=== PATIENT | male | born 1945 | race Two or more races ===

== ENCOUNTER → 2024-09-05 | Outpatient (CLI) | payer MEDICARE, OTHER, SELFPAY ==
[2024-09-05 11:00] LABS: INR 3.2 (0.9-1.3)
[2024-09-05 11:04] LABS: Prothrombin Time 31.8 Seconds (9.0-12.2)
== END | disposition home or self-care (01) ==
LOC: COPL 10:10
PROVIDERS: PCP Family Medicine; Referring Provider Internal Medicine Cardiovascular Disease; Visit Provider Internal Medicine Cardiovascular Disease
DX: I48.21 Permanent atrial fibrillation (principal); Z79.01 Long term (current) use of anticoagulants
CPT/HCPCS: 36415; 85610

== ENCOUNTER → 2024-10-14 | Outpatient (CLI) | payer MEDICARE, OTHER, SELFPAY ==
[2024-10-14 14:46] LABS: Glucose Estimated Average 200 mg/dL (80-131); Hemoglobin A1C 8.6 % Hgb (4.8-6.0)
[2024-10-14 14:58] LABS: Anion Gap 10 (7-16); BUN/Creatinine Ratio 15 Ratio (12-20); Blood Urea Nitrogen 23 mg/dL (9-23); Calcium 9.2 mg/dL (8.3-10.6); Chloride 105 mMol/L (98-107); Creatinine (Component) 1.5 mg/dL (0.6-1.3); Glucose 155 mg/dL (74-106); Osmolality,Calculated 287 (275-295); Sodium 141 mMol/L (136-145); eGFR 48 See Note
== END | disposition home or self-care (01) ==
PROVIDERS: PCP Family Medicine; Referring Provider Family Medicine; Visit Provider Family Medicine
DX: E11.21 Type 2 diabetes mellitus with diabetic nephropathy (principal)
CPT/HCPCS: 36415; 80048; 83036

== ENCOUNTER → 2024-12-29 | Outpatient (CLI) | payer MEDICARE, OTHER, SELFPAY ==
[2024-12-29 14:02] LABS: Glucose Estimated Average 217 mg/dL (80-131); Hemoglobin A1C 9.2 % Hgb (4.8-6.0)
== END | disposition home or self-care (01) ==
LOC: COPL 12:04
PROVIDERS: PCP Family Medicine; Referring Provider Family Medicine; Visit Provider Family Medicine
DX: E11.65 Type 2 diabetes mellitus with hyperglycemia (principal)
CPT/HCPCS: 36415; 83036

== ENCOUNTER 2025-02-06 10:08 | Emergency (ER) | payer MEDICARE, OTHER, SELFPAY ==
[2025-02-06 10:10] VITALS: BMI 25.2
--- NOTE | 2025-02-06 10:22 | EKG_ITS ---
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
[2025-02-06 10:28] VITALS: BP 144/90; PULSE 65; RESP 18; TEMP 36.7; O2SAT 98
--- NOTE | 2025-02-06 10:36 | PD.EDRME ---
Rapid Medical Screening Exam RME Arrival date/time: 02/06/25 10:08 79-year-old male presents to the emergency department today with daughter who reports patient had near syncopal episode today Chief Complaint: Weakness Vital signs: Vital Signs Temperature 98.0 F 02/06/25 10:28 Pulse Rate 65 02/06/25 10:28 Respiratory Rate 18 02/06/25 10:28 Blood Pressure 144/90 H 02/06/25 10:28 Pulse Oximetry (%) 98 02/06/25 10:28 Oxygen Delivery Method Room Air 02/06/25 10:28
[2025-02-06 10:59] LABS: INR 2.8 (0.9-1.3); Prothrombin Time 28.2 Seconds (9.0-12.2)
[2025-02-06 11:06] LABS: B-Type Natriuretic Peptide 222 pg/mL (0-100)
[2025-02-06 11:07] LABS: Alanine Aminotransferase 11 U/L (10-49); Albumin/Globulin Ratio 1.1 (1.2-2.2); Alkaline Phosphatase 120 U/L (46-116); Anion Gap 8 (7-16); Aspartate Amino Transferase 13 U/L (0-34); BUN/Creatinine Ratio 12 Ratio (12-20); Bilirubin,Total 0.8 mg/dL (0.3-1.2); Blood Urea Nitrogen 23 mg/dL (9-23); Calcium 8.7 mg/dL (8.3-10.6); Calcium (Corrected) 8.7 mg/dL (8.5-10.1); Carbon Dioxide 26.3 mMol/L (20.0-31.0); Chloride 107 mMol/L (98-107); Creatinine (Component) 1.9 mg/dL (0.6-1.3); Estimated Creatinine Clearance 35.2 mL/min (>60); Globulin 3.6 gm/dL (2.3-3.5); Glucose 201 mg/dL (74-106); LDH (Lactate Dehydrogenase) 178 U/L (120-246); Magnesium 1.8 mg/dL (1.6-2.6); Osmolality,Calculated 290 (275-295); Sodium 141 mMol/L (136-145); Total Protein 7.6 gm/dL (5.7-8.2); Troponin I < 0.020 ng/mL (0.0-0.045); eGFR 36 See Note
--- NOTE | 2025-02-06 11:10 | PD.EDWEAK ---
ED Weakness RME/HPI General Chief complaint: Weakness Stated complaint: WEAKNESS AND S/P FALL IN AM Time Seen by Provider: 02/06/25 10:42 Arrival date/time: 02/06/25 10:08 RME / HPI RME / HPI Narrative: 02/06/25 10:08 79-year-old male presents to the emergency department today with daughter who reports patient had near syncopal episode today DR. TREVINO MAIN ED EVALUATION: 79 year old male presents to the Emergency Department accompanied by his daughter with complains of generalized weakness and syncopal episode. Patient had just showered and was walking back to his room when he started feeling weak so he went to lay down on his bed and that is when his body gave out. No fall or injury, patient already in bed. Per daughter, patient passed out for couple seconds . Blood glucose was 206. No nausea or vomiting. No chest pain. No other symptoms reported. PMHx: Diabetes, CVA with left arm deficits, and memory problems occasionally. Social Hx: No tobacco, alcohol, or substance use. Related Data Home Medications ?Medication ?Instructions ?Recorded ?Confirmed amlodipine 10 mg tablet (Norvasc) 10 mg PO QDAY 10/14/20 02/06/25 lisinopril 20 mg tablet (Zestril) 20 mg PO QDAY 10/14/20 02/06/25 glyburide 5 mg tablet 5 mg PO BID 10/14/21 02/06/25 metformin 500 mg tablet 500 mg PO BID 10/14/21 02/06/25 oxybutynin chloride 5 mg tablet 5 mg PO QDAY 10/14/21 02/06/25 rivaroxaban 2.5 mg tablet 15 mg PO QDAY 10/14/21 12/02/22 empagliflozin 25 mg tablet 10 mg PO QDAY 10/29/22 02/06/25 (Jardiance) glimepiride 2 mg tablet 2 mg PO QAM 11/07/22 02/06/25 Previous Rx's ?Medication ?Instructions ?Recorded atorvastatin 80 mg tablet (Lipitor) 80 mg PO QPM #60 tabs 10/16/20 Allergies Allergy/AdvReac Type Severity Reaction Status Date / Time tuna oil Allergy Severe Hives Verified 02/06/25 10:10 Review of Systems Review of Systems Systems Reviewed: All systems reviewed, normal except as documented Past Medical History Past Medical History NEUROLOGIC: Positive Neurological Disorders and Cerebrovascular Accident CARDIAC: Positive Cardiac Disorders, Atrial Fibrillation, Hypercholesterolemia and Hypertension; Negative Congestive Heart Failure GENITOURINARY: Positive Genitourinary Disorders and Kidney Stones ENDOCRINE: Positive Endocrine Disorders and Diabetes Mellitus Type 2 PSYCHO/SOCIAL: Positive Depression OTHER HISTORY: Positive Hospitalization (2021-[facility]) Family History FAMILY HISTORY: Positive Family Cardiac Disorders Social History SMOKING STATUS: Never smoker SUBSTANCE USE: does not use ALCOHOL: Never ED Exam Narrative Physical exam: GENERAL APPEARANCE: alert and oriented x 4, well-developed, well-nourished, no acute distress VITALS: All vitals were reviewed and the pulse ox is 98% on room air, which is normal according to my interpretation. HEENT: Normocephalic, atraumatic; pupils equal, round, reactive to light; EOMI; mucous membranes pink, moist; oropharynx clear NECK: Supple. Small mass in the left posterior neck area. LUNGS: CTABL; no wheezes, no rales, no rhonchi HEART: Regular rate, regular rhythm; normal S1, S2; no murmurs ABDOMEN: non distended; normal BS; soft, no tenderness, no guarding, no rebound; no masses, no organomegaly, no hernia BACK: no CVA tenderness EXTREMITIES: atraumatic; no edema NEUROLOGIC: awake; alert and oriented x4; cranial nerves II-XII grossly intact; no focal sensory or motor deficits PSYCHIATRIC: appropriate mood and affect SKIN: warm, dry, normal color; no rashes Course Quality Measures none Orders Category Date Time Status EKG (ED ONLY) *Do not use* NOW Care 02/06/25 10:22 Completed EKG (ED Only) Stat Exams 02/06/25 10:22 Draft B-Type Natriuretic Peptide Stat Lab 02/06/25 10:38 Completed CBC Stat Lab 02/06/25 10:38 Completed Comprehensive Metabolic Panel Stat Lab 02/06/25 10:38 Completed LDH (Lactate Dehydrogenase) Stat Lab 02/06/25 10:38 Completed Magnesium Stat Lab 02/06/25 10:38 Completed Partial Thromboplastin Time Stat Lab 02/06/25 10:38 Completed Prothrombin Time with INR Stat Lab 02/06/25 10:38 Completed Troponin I Stat Lab 02/06/25 10:38 Completed Urinalysis Stat Lab 02/06/25 11:14 Completed Vital Signs Vital signs: Vital Signs Temperature 98.0 F 02/06/25 10:28 Pulse Rate 65 02/06/25 10:28 Respiratory Rate 18 02/06/25 10:28 Blood Pressure 144/90 H 02/06/25 10:28 Pulse Oximetry (%) 98 02/06/25 10:28 Oxygen Delivery Method Room Air 02/06/25 10:28 Weakness MDM Narrative MDM Narrative:: I, Natalia Germain am scribing for and in the presence of Dr. Trevino. Patient data External records reviewed:: [facility] previous records (Reviewed last admission discharge dated 10/16/21, patient admitted for the following: Acute UTI) Clinical information provided by:: patient and family (daughter) Social determinants that could affect healthcare access:: none Patient has the following chronic illnesses:: Diabetes, CVA with left arm deficits, and memory problems occasionally. How is presenting disease/condition affected by chronic disease/condition?: exacerbated by Evaluation data The following diagnostics were reviewed and interpreted by me:: lab results and EKG tracing(s) Lab and/or radiology exams considered but not ordered:: none Interpretation Summary: EKG#1: EKG at 1033 hours. Interpreted by me: atrial fibrillation, rate 59, no acute ischemic changes Medications / Prescriptions Medications or Prescriptions considered but not ordered:: none Medication administrations:: none Consultations Consultation(s) initiated? (list below): No Diagnosis Weakness Differential Diagnosis: hypoglycemia, sepsis, dehydration and other (Near syncope) Most likely diagnosis given after review of the tests above:: Near syncope Admission Indicated Admission indicated?: not indicated Admission Request Was there a request for admission?: No Disposition Plan Disposition Plan: Discharge Discharge Attestation Discharge Attestation: The patient and all family members were given an opportunity to ask questions and understood the discharge instructions. Discharge instructions specifically effects, indications for sooner follow up or return to the emergency department, and the expected course of current diagnosis. Patient condition: Stable Discharge Plan Plan Patient Disposition: HOME (Self Care) Prescriptions/Referrals Prescriptions/Med Rec: No Action Jardiance 25 mg tablet 10 mg PO QDAY lisinopril [Zestril] 20 mg tablet 20 mg PO QDAY Patient Comments: TAKE 1 TABLET BY MOUTH ONCE DAILY amlodipine [Norvasc] 10 mg tablet 10 mg PO QDAY Patient Comments: TAKE 1 TABLET BY MOUTH ONCE DAILY atorvastatin [Lipitor] 80 mg Tablet 80 mg PO QPM Qty: 60 0RF metformin 500 mg Tablet 500 mg PO BID glyburide 5 mg Tablet 5 mg PO BID oxybutynin chloride 5 mg Tablet 5 mg PO QDAY rivaroxaban 2.5 mg Tablet 15 mg PO QDAY glimepiride 2 mg Tablet 2 mg PO QAM Rx Instructions: administer with breakfast Referrals: Soraida Hassan MD [Primary Care Provider] - In 1 week Problem List Clinical Impression: Near syncope Patient/Caregiver Discharge Instructions Education Materials: ED Near-Fainting, Uncertain Cause Print Language: Eritrean Stand Alone Forms: Eileen Award Info., Patient Portal Info Letter
[2025-02-06 11:18] LABS: Collection Type, Urine Clean Catch
[2025-02-06 11:35] LABS: Basophils # (Auto) 0.1 Thou/mm3 (0.0-0.2); Basophils % (Auto) 1 % (0-2.5); Eosinophils # (Auto) 0.3 Thou/mm3 (0.0-0.5); Eosinophils % (Auto) 4 % (0-10); Hematocrit 44.9 % (41.0-53.0); Immature Granulocytes % (Auto) 0 % (0-0); Immature Granulocytes Auto 0.02 Thou/mm3 (0.00-0.00); Lymphocytes % (Auto) 14 % (10-50); Mean Corpuscular HGB Conc 33.4 g/dl (31.0-37.0); Mean Corpuscular Hemoglobin 28.1 pg (25.0-35.0); Mean Corpuscular Volume 84 fL (80-100); Monocytes # (Auto) 0.5 Thou/mm3 (0.0-0.8); Monocytes % (Auto) 6 % (0-12); Neutrophils # (Auto) 5.8 Thou/mm3 (1.8-7.7); Neutrophils % (Auto) 76 % (37-80); Nucleated Red Blood Cell % 0 /100 WBC (0); Platelet Count 247 Thou/mm3 (140-440); RDW Standard Deviation 39.3 fL (35.1-43.9); Red Blood Count 5.34 Miln/mm3 (4.50-5.90); White Blood Count 7.6 Thou/mm3 (3.8-10.6)
[2025-02-06 11:57] LABS: Bacteria,Urine Rare; Bilirubin,Urine Negative (Negative); Blood,Urine 1+ (Negative); Clarity,Urine Clear (Clear/Hazy); Color,Urine Lt-Yellow (Lt Yel-Yel); Glucose, Urine 4+ (Negative); Ketones,Urine Negative (Negative); Leukocyte Esterase,Urine Negative (Negative); Nitrite,Urine Negative (Negative); PH,Urine 6.5 (5.0-7.0); Protein,Urine 1+ (Neg - Trace); RBC,Urine 4 /hpf (0-3); Specific Gravity,Urine 1.015 (1.001-1.035); Squamous Epithelial Cell,Urine 2 /hpf (0-5); Urobilinogen,Urine Negative mg/dL (0.0-1.0); WBC,Urine 6 /hpf (0-5)
[2025-02-06 12:07] VITALS: BP 165/106; PULSE 62; RESP 19; TEMP 36.4; O2SAT 98
== END 2025-02-06 13:12 | disposition home or self-care (01) ==
PROVIDERS: Nurse Practitioner Primary Care; Emergency Provider Emergency Medicine; PCP Family Medicine
DX: R55 Syncope and collapse (principal); R53.1 Weakness; I48.91 Unspecified atrial fibrillation; Z86.73 Personal history of transient ischemic attack (TIA), and cerebral infarction without residual deficits
CPT/HCPCS: 36415; 80053; 81001; 83615; 83735; 83880; 84484; 85025; 85610; 85730; 93005; 99283

== ENCOUNTER 2025-08-18 19:37 | Inpatient (IN) | payer MEDICARE, OTHER, SELFPAY ==
[2025-08-18 19:40] VITALS: BMI 27.0
[2025-08-18 19:58] VITALS: BP 119/84; PULSE 81; RESP 18; TEMP 36.6; O2SAT 99
--- NOTE | 2025-08-18 20:25 | EKG_ITS ---
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
--- NOTE | 2025-08-18 20:29 | XR_ITS ---
Examination: CT brain head without contrast. 2-D sagittal coronal reconstructions Date and time of exam: August 18, 2025, 20.44 hours INDICATION: Altered mental status today CTDI: vol (mGy): 51.8 DLP: (mGycm): 1096 Technique: Multiple CT axial sections of the brain have been obtained, 5 mm slice thickness. Contrast has not been administered. 2-D sagittal, coronal reconstructions have been obtained Low dose protocols were performed. One or more of the following dose reduction techniques were used; automated exposure control, adjustment of the mA and/or KV according to patient size, use of iterative reconstruction technique. Findings: No significant ventricular enlargement. Intra-axial or extra-axial hemorrhage density is not seen. No mass effect or midline shift Basal cisterns are not remarkable. Fourth ventricle is midline. Cranial vault intact. Impression: Negative for acute hemorrhage, mass effect or midline shift Advise clinical correlation and follow-up accordingly
[2025-08-18 20:55] LABS: Basophils # (Auto) 0.1 Thou/mm3 (0.0-0.2); Basophils % (Auto) 1 % (0-2.5); Eosinophils # (Auto) 0.3 Thou/mm3 (0.0-0.5); Eosinophils % (Auto) 4 % (0-10); Hematocrit 40.0 % (41.0-53.0); Hemoglobin 13.8 g/dL (13.5-16.0); Immature Granulocytes Auto 0.02 Thou/mm3 (0.00-0.00); Lymphocytes # (Auto) 1.4 Thou/mm3 (1.0-4.8); Lymphocytes % (Auto) 17 % (10-50); Mean Corpuscular HGB Conc 34.5 g/dl (31.0-37.0); Mean Corpuscular Hemoglobin 30.1 pg (25.0-35.0); Mean Corpuscular Volume 87 fL (80-100); Monocytes # (Auto) 0.8 Thou/mm3 (0.0-0.8); Monocytes % (Auto) 9 % (0-12); Neutrophils # (Auto) 5.6 Thou/mm3 (1.8-7.7); Neutrophils % (Auto) 69 % (37-80); Nucleated Red Blood Cell # 0.00 Thou/mm3 (0.00-0.00); Nucleated Red Blood Cell % 0 /100 WBC (0); Platelet Count 244 Thou/mm3 (140-440); RDW Standard Deviation 40.6 fL (35.1-43.9); Red Blood Count 4.58 Miln/mm3 (4.50-5.90); White Blood Count 8.1 Thou/mm3 (3.8-10.6)
[2025-08-18 21:08] LABS: INR 1.5 (0.9-1.3); Partial Thromboplastin Time 35.0 Seconds (22.0-36.0); Prothrombin Time 15.8 Seconds (9.0-12.2)
[2025-08-18 21:40] LABS: Ammonia < 10 uMol/L (11-32); Anion Gap 9 (7-16); Blood Urea Nitrogen 16 mg/dL (9-23); Carbon Dioxide 23.9 mMol/L (20.0-31.0); Chloride 105 mMol/L (98-107); Potassium 4.3 mMol/L (3.4-5.1); Sodium 138 mMol/L (136-145)
[2025-08-18 21:41] LABS: Acetaminophen < 2.0 mcg/mL (10.0-20.0); Alanine Aminotransferase 17 U/L (10-49); Albumin, Serum 4.3 gm/dL (3.4-4.8); Albumin/Globulin Ratio 1.3 (1.2-2.2); Alcohol, Blood Medical < 3.0 mg/dL (0-10.0); Alkaline Phosphatase 117 U/L (46-116); Aspartate Amino Transferase 19 U/L (0-34); BUN/Creatinine Ratio 9 Ratio (12-20); Bilirubin,Total 0.8 mg/dL (0.3-1.2); Calcium 9.0 mg/dL (8.3-10.6); Calcium (Corrected) 9.0 mg/dL (8.5-10.1); Creatinine (Component) 1.7 mg/dL (0.6-1.3); Estimated Creatinine Clearance 40.5 mL/min (>60); Globulin 3.3 gm/dL (2.3-3.5); Glucose 329 mg/dL (74-106); Magnesium 1.9 mg/dL (1.6-2.6); Osmolality,Calculated 289 (275-295); Salicylate < 3.0 mg/dL; Thyroid Stimulating Hormone 2.52 uIU/mL (0.55-4.78); Total Protein 7.6 gm/dL (5.7-8.2); Troponin I < 0.020 ng/mL (0.0-0.045); eGFR 41 See Note
[2025-08-18 22:53] VITALS: BP 154/93; PULSE 71; RESP 18; TEMP 36.9; O2SAT 99
--- NOTE | 2025-08-18 23:26 | PD.EDAMS ---
Altered Mental Status RME/HPI General Chief Complaint: Altered Mental Status Stated Complaint: ALTERED MENTAL STATUS Time Seen by Provider: 08/18/25 19:44 Arrival date/time: 08/18/25 19:37 RME / HPI RME / HPI narrative: DR. CONTRERAS MAIN ED EVALUATION: Patient presenting with intermittent confusion and tendency to wander having been in 2 separate locations within the last 48 hours while driving. No antecedent fever, chills, vomiting, or diarrhea. No URI or cough. Baseline incontinence of urine. PMH: Cerebrovascular Accident, Atrial Fibrillation, Hypercholesterolemia, Hypertension, Renal Disease, Kidney Stones, Diabetes Mellitus Type 2, Depression PSH: Allergies: None reported Social: Non-drinker, Non-smoker, Related Data Home Medications ?Medication ?Instructions ?Recorded ?Confirmed amlodipine 10 mg tablet (Norvasc) 10 mg PO QDAY 10/14/20 02/06/25 lisinopril 20 mg tablet (Zestril) 20 mg PO QDAY 10/14/20 02/06/25 glyburide 5 mg tablet 5 mg PO BID 10/14/21 02/06/25 metformin 500 mg tablet 500 mg PO BID 10/14/21 02/06/25 oxybutynin chloride 5 mg tablet 5 mg PO QDAY 10/14/21 02/06/25 rivaroxaban 2.5 mg tablet 15 mg PO QDAY 10/14/21 12/02/22 empagliflozin 25 mg tablet 10 mg PO QDAY 10/29/22 02/06/25 (Jardiance) glimepiride 2 mg tablet 2 mg PO QAM 11/07/22 02/06/25 Previous Rx's ?Medication ?Instructions ?Recorded atorvastatin 80 mg tablet (Lipitor) 80 mg PO QPM #60 tabs 10/16/20 Allergies Allergy/AdvReac Type Severity Reaction Status Date / Time tuna oil Allergy Severe Hives Verified 08/18/25 19:48 Review of Systems Review of Systems Systems Reviewed: All systems reviewed, normal except as documented Past Medical History Past Medical History NEUROLOGIC: Positive Neurological Disorders and Cerebrovascular Accident CARDIAC: Positive Cardiac Disorders, Atrial Fibrillation, Hypercholesterolemia and Hypertension GENITOURINARY: Positive Genitourinary Disorders, Renal Disease and Kidney Stones ENDOCRINE: Positive Endocrine Disorders and Diabetes Mellitus Type 2 PSYCHO/SOCIAL: Positive Depression OTHER HISTORY: Positive Hospitalization Family History FAMILY HISTORY: Positive Family Cardiac Disorders ED Exam Narrative Physical exam: GEN. APPEARANCE: The patient is alert awake oriented x2/3 with assist, appropriately interactive at this time. Under no distress, lying down comfortably, does not look ill/toxic. Patient has good eye contact. Patient is cooperative. VITALS: All vitals were reviewed and the pulse ox is 99%, which is normal according to my interpretation HEENT: Normocephalic, atraumatic and nontender. Pupils are equal and reactive. Oral mucosa is moist. NECK: Supple, nontender, no meningismus, no JVD. There is no thyromegaly and no lymphadenopathy. CHEST: Nontender on palpation no deformity and no crepitus. CARDIOVASCULAR: Heart irregular irregular rate and regular rhythm, no murmur or gallop rub or extra beats. LUNGS: Clear to auscultation bilaterally with symmetrical chest rise. No laboring tachypnea or wheezing. No intercostal subcostal retraction. No rales and no rhonchi. ABDOMEN: Soft, flat, nontender to palpation, no guarding or rebound tenderness. There are no abnormal masses palpated. No pulsatile masses or bruits. Active and normal bowel sounds. EXTREMITIES: Normal inspection and palpation. No edema. No cyanosis. Patient is able to move all 4 extremities well. LE with no edema or calf tenderness. SKIN: Warm and dry, no rashes noted. MUSCULOSKELETAL: No lumbar or midline bony tenderness. There is no CVA tenderness. No paraspinal muscle spasm or tenderness. NEURO: Cranial nerves II through XII grossly intact. There are no focal neurologic deficits noted. Slightly impaired cognition. PSYCHIATRIC: Patient is in normal mood and affect, cooperative. LYMPHATICS: No major lymphadenopathy noted. Course Quality Measures none Orders Category Date Time Status Admit to Inpatient Status Routine Admission 08/19/25 01:06 Active Patient Condition Routine Admission 08/19/25 00:58 Ordered Bedside Blood Glucose AC Care 08/19/25 01:04 Active Bedside Blood Glucose NOW Care 08/18/25 20:25 Active COVID-19 Screening Questionnaire NOW Care 08/19/25 00:23 Active Electrical Technician NOW Care 08/18/25 20:25 Active Continuous Pulse Oximetry NOW Care 08/18/25 20:25 Completed EKG (ED ONLY) *Do not use* NOW Care 08/18/25 20:26 Completed Insert IV NOW Care 08/18/25 20:26 Active Miscellaneous Nursing Order NOW Care 08/19/25 00:58 Active NPO NOW Care 08/18/25 20:26 Active Notify provider NEEDED Care 08/19/25 00:58 Active Nurse Swallow Screen X1 Care 08/19/25 01:04 Active Obtain weight X1 Care 08/19/25 00:58 Active Strict Intake and Output Routine Care 08/19/25 00:58 Ordered Vital Signs, Non-Routine Q4H Care 08/19/25 01:00 Ordered Vital Signs, Non-Routine Q4H Care 08/19/25 05:00 Ordered Consult to Neurology / Tele-Neurology Stat Cons 08/19/25 01:[address] head/brain wo con Stat Exams 08/18/25 20:29 Completed EKG (ED Only) Stat Exams 08/18/25 20:25 Draft Acetaminophen Stat Lab 08/18/25 20:45 Completed Alcohol, Blood Medical Stat Lab 08/18/25 20:45 Completed Ammonia Stat Lab 08/18/25 20:45 Completed CBC AM DRAW Lab 08/19/25 05:00 Ordered CBC AM DRAW Lab 08/20/25 05:00 Ordered CBC AM DRAW Lab 08/21/25 05:00 Ordered CBC Stat Lab 08/18/25 20:45 Completed Comprehensive Metabolic Panel AM DRAW Lab 08/19/25 05:00 Ordered Comprehensive Metabolic Panel AM DRAW Lab 08/20/25 05:00 Ordered Comprehensive Metabolic Panel AM DRAW Lab 08/21/25 05:00 Ordered Comprehensive Metabolic Panel Stat Lab 08/18/25 20:45 Completed Drug Screen,Urine Stat Lab 08/18/25 11:41 Completed Lipid Panel AM DRAW Lab 08/19/25 05:00 Ordered Magnesium AM DRAW Lab 08/19/25 05:00 Ordered Magnesium AM DRAW Lab 08/20/25 05:00 Ordered Magnesium AM DRAW Lab 08/21/25 05:00 Ordered Magnesium Stat Lab 08/18/25 20:45 Completed Partial Thromboplastin Time AM DRAW Lab 08/19/25 05:00 Ordered Partial Thromboplastin Time Stat Lab 08/18/25 20:45 Completed Phosphorous AM DRAW Lab 08/19/25 05:00 Ordered Phosphorous AM DRAW Lab 08/20/25 05:00 Ordered Phosphorous AM DRAW Lab 08/21/25 05:00 Ordered Prothrombin Time with INR AM DRAW Lab 08/19/25 05:00 Ordered Prothrombin Time with INR Stat Lab 08/18/25 20:45 Completed Salicylate Stat Lab 08/18/25 20:45 Completed Thyroid Stimulating Hormone AM DRAW Lab 08/19/25 05:00 Ordered Thyroid Stimulating Hormone Stat Lab 08/18/25 20:45 Completed Troponin I Stat Lab 08/18/25 20:45 Completed Urinalysis, C/S if Indicated Stat Lab 08/18/25 11:41 Completed Vitamin B12 Routine Lab 08/19/25 05:00 Ordered Albuterol/Ipratr Rt Essence [Duoneb Rt Essence] Med 08/19/25 00:58 Active 3 ml INH Q6HRRT PRN Atorvastatin Calcium [Lipitor] Med 08/19/25 01:05 Active 80 mg PO HS Dextrose 50% Syr [D50w Syringe Abboject] Med 08/19/25 01:04 Active 25 ml IV Q15MIN PRN Dextrose 50% Syr [D50w Syringe Abboject] Med 08/19/25 01:04 Active 50 ml IV Q15MIN PRN Docusate Sod [Colace] Med 08/19/25 00:58 Active 100 mg PO QDAY PRN Glucagon Inj Med 08/19/25 01:04 Active 1 mg IM Q15MIN PRN INSULIN LISPRO (AdmeLOG) [HumaLOG] Med 08/19/25 07:30 Active See Protocol SC AC Ondansetron Inj [Zofran Inj] Med 08/19/25 00:58 Active 4 mg IVP Q6H PRN Oxybutynin Chlor [Ditropan] Med 08/19/25 09:00 Active 5 mg PO QDAY Sodium Chloride 0.9% 500 ml [Ns] 500 ml Med 08/18/25 20:25 Discontinued IV 500 mls/hr Code Status Routine Oth 08/19/25 01:05 Ordered Oxygen Delivery NOW RT 08/18/25 20:26 Active Vital Signs Vital signs: Vital Signs Temperature 97.9 F 08/18/25 19:58 Pulse Rate 81 08/18/25 19:58 Respiratory Rate 18 08/18/25 19:58 Blood Pressure 119/84 08/18/25 19:58 Pulse Oximetry (%) 99 08/18/25 19:58 Oxygen Delivery Method Room Air 08/18/25 19:58 Altered Mental Status MDM Narrative MDM Narrative:: Scribe Attestation: I, Estelle Neal, am scribing for and in the presence of Dr. Esparza. Provider Notation: Although this document has been carefully reviewed, there may still be some phonetic and other typographical errors. These errors are purely grammatical due to imperfections in the software program and should not be construed in any way to compromise the substance of the patient's medical care during this visit. Patient presenting with intermittent confusion and tendency to wander having been in 2 separate locations within the last 48 hours while driving. No antecedent fever, chills, vomiting, or diarrhea. Please see PE findings. Laboratory markers, including CBC, are essentially unremarkable. Coag profile demonstrates I&R mildly elevated at 1.5. Serum chemistries demonstrate mildly elevated at baseline. Toxicology screen is negative. Alcohol, ASA, and Tylenol undetected. EKG demonstrates atrial fibrillation with controlled rate of 58 bpm, no acute changes noted. Head CT unremarkable. Patient likely experiencing Dementia and will possibly require placement. Will discuss with family. Hospitalist contacted for consideration for admission for further work-up, and possible placement. Final diagnosis is new onset dementia. Patient data External records reviewed:: [facility] previous records (Reviewed prior ED records from 02/06/25. Patient was seen for Near syncope.) Clinical information provided by:: patient Social determinants that could affect healthcare access:: none Patient has the following chronic illnesses:: Cerebrovascular Accident, Atrial Fibrillation, Hypercholesterolemia, Hypertension, Renal Disease, Kidney Stones, Diabetes Mellitus Type 2, Depression How is presenting disease/condition affected by chronic disease/condition?: exacerbated by Evaluation data The following diagnostics were reviewed and interpreted by me:: lab results, radiology exam(s) and EKG tracing(s) (EKG demonstrates atrial fibrillation with controlled rate of 58 bpm, no acute changes noted, per my interpretation.) Lab and/or radiology exams considered but not ordered:: None Interpretation Summary: RADIOLOGY Head/Brain CT: Findings: No significant ventricular enlargement. Intra-axial or extra-axial hemorrhage density is not seen. No mass effect or midline shift Basal cisterns are not remarkable. Fourth ventricle is midline. Cranial vault intact. Impression: Negative for acute hemorrhage, mass effect or midline shift Advise clinical correlation and follow-up accordingly Medications / Prescriptions Medications or Prescriptions considered but not ordered:: None Medication administrations:: Medication Administration History Albuterol/Ipratropium (Albuterol/Ipratropium (Duoneb) Rt Essence 3 Ml Nebu) 3 ml INH Q6HRRT PRN PRN Reason: SHORTNESS OF BREATH OR WHEEZE Stop: 09/18/25 00:57 Atorvastatin Calcium (Atorvastatin Calcium 10 Mg Tablet) 80 mg PO HS JACKIE Stop: 09/18/25 01:04 Dextrose (Dextrose 50%-Water Inj 50 Ml Syringe) 25 ml IV Q15MIN PRN PRN Reason: BG 50-70 responsive npo pt Stop: 09/18/25 01:03 Dextrose (Dextrose 50%-Water Inj 50 Ml Syringe) 50 ml IV Q15MIN PRN PRN Reason: BG <50 OR BG <70 & pt unresponsive Stop: 09/18/25 01:03 Docusate Sodium (Docusate Sod 100 Mg Capsule) 100 mg PO QDAY PRN; Protocol PRN Reason: CONSTIPATION Stop: 09/18/25 00:57 Glucagon (Glucagon Inj 1 Mg Vial) 1 mg IM Q15MIN PRN PRN Reason: BG <70, and no IV access Insulin Human Lispro (Insulin Lispro (Admelog) 1 Unit/0.01 Ml Unit) 0 unit SC [facility]; Protocol Stop: 09/18/25 07:29 Ondansetron HCl (Ondansetron Inj 2 Mg/Ml Inj 2 Ml) 4 mg IVP Q6H PRN; Protocol PRN Reason: NAUSEA OR VOMITING Stop: 09/18/25 00:57 Oxybutynin Chloride (Oxybutynin Chlor 5 Mg Tablet) 5 mg PO QDAY JACKIE Stop: 09/18/25 08:59 Discontinued Medications Sodium Chloride (Ns) 500 mls @ 500 mls/hr IV .Q1H ONE Stop: 08/18/25 21:24 Last Infusion: 08/19/25 00:32 Dose: Infused Documented By: Admin: 08/18/25 23:32 Dose: 500 mls/hr Documented By: AC See above if any Consultations Consultation(s) initiated? (list below): Yes Consultation #1 (Physician, Specialty, Details): Discussed with Dr. Reis for admission. Reviewed the patient?s HPI, PMHx, lab and/or radiology results. Discussed treatment plan. Will consult an admission to the hospitalist. Time: 00:23 Diagnosis Differential diagnosis altered mental status: alcoholic intoxication, altered mental status, delirium, dementia, hypoglycemia, hyponatremia, subarachnoid hemorrhage and sepsis Most likely diagnosis given after review of the tests above:: New onset dementia Admission Indicated Admission indicated?: indicated Explain why admission is indicated or not indicated:: New onset dementia Admission Request Was there a request for admission?: Yes Admission Attestation Admission request attestation: Discussed case with [] from Hospitalist service regarding admission. Discussed patients ED course, exam findings, labs, and radiology results. The Hospitalist [agrees,declines] to accept the patient for admission. Disposition Plan Disposition Plan: Admit Discharge Plan Plan Patient Disposition: Admit Acute Care w/in Hospital Prescriptions/Referrals Prescriptions/Med Rec: No Action Jardiance 25 mg tablet 10 mg PO QDAY lisinopril [Zestril] 20 mg tablet 20 mg PO QDAY Patient Comments: TAKE 1 TABLET BY MOUTH ONCE DAILY amlodipine [Norvasc] 10 mg tablet 10 mg PO QDAY Patient Comments: TAKE 1 TABLET BY MOUTH ONCE DAILY atorvastatin [Lipitor] 80 mg Tablet 80 mg PO QPM Qty: 60 0RF metformin 500 mg Tablet 500 mg PO BID glyburide 5 mg Tablet 5 mg PO BID oxybutynin chloride 5 mg Tablet 5 mg PO QDAY rivaroxaban 2.5 mg Tablet 15 mg PO QDAY glimepiride 2 mg Tablet 2 mg PO QAM Rx Instructions: administer with breakfast Referrals: Tay Hassan MD [Primary Care Provider, Family Practice] - In 1 week Problem List Clinical Impression: Dementia Patient/Caregiver Discharge Instructions Print Language: Armenian Stand Alone Forms: Eileen Award Info., Patient Portal Info Letter
[2025-08-18] MEDS: SODIUM CHLORIDE 0.9% 500 ML 500 ML IV (23:32)
[2025-08-18 23:47] LABS: Collection Type, Urine Clean Catch
[2025-08-18 23:52] LABS: Amorphous Crystals,Urine Present (Absent); Bacteria,Urine Rare; Bilirubin,Urine Negative (Negative); Blood,Urine 1+ (Negative); Clarity,Urine Clear (Clear/Hazy); Color,Urine Yellow (Lt Yel-Yel); Culture Indicated,Urine Not Indicated; Glucose, Urine 4+ (Negative); Ketones,Urine Negative (Negative); Leukocyte Esterase,Urine Negative (Negative); Nitrite,Urine Negative (Negative); PH,Urine 6.0 (5.0-7.0); Protein,Urine 1+ (Neg - Trace); RBC,Urine 4 /hpf (0-3); Specific Gravity,Urine 1.019 (1.001-1.035); Squamous Epithelial Cell,Urine 2 /hpf (0-5); Urobilinogen,Urine Negative mg/dL (0.0-1.0); WBC,Urine 1 /hpf (0-5)
[2025-08-19] VITALS (14 sets, daily range): BP systolic 137–168; BP diastolic 77–99; PULSE 40–78; RESP 16–100; TEMP 36.2–36.8; O2SAT 97–100; BMI 25.4
[2025-08-19 00:11] LABS: Amphetamine/Methamp Scrn,U Negative (Negative); Barbiturate Screen,Urine Negative (Negative); Benzodiazepines Screen,Urine Negative (Negative); Benzoylecgonine Screen, Ur Negative (Negative); Fentanyl Screen,Urine Negative (Negative); Opiate Screen,Urine Negative (Negative); THC Screen,Urine Negative (Negative)
--- NOTE | 2025-08-19 00:53 | PD.RESHP ---
Documentation for date of: 08/19/25 [facility] History of Present Illness History of present illness: 79 y/o male with PMHx of HTN, Afib (On Warfarin), BPH s/p TURP, overactive bladder, HLD, T2DM, and previous CVA (Basal ganglia) who comes in for evaluation of confusion after wandering and driving for the past 2 days. According to the patient's son, patient currently has a license and is able to drive, however he has been wandering off and driving up to [place] for the past 2 days. Patient's son says that he has no business in [place] and that they had to get law enforcement involved to track his location and to get him back home. Patient's son reports that this has never happened to him before. He does endorse that the patient has a history of a stroke and that he has trouble identifying people at times, however he has never been this confused in the past. He denies any other recent travel or sick contacts. He is unsure if the patient takes aspirin, however he says that he takes a blood thinner at this time. He denies any recent sicknesses. Denies history of thyroid problems. He currently lives with the son. He says his bowel movements are regular and his last 1 was today. He has not been more aggressive than usual. He has seen a neurologist in town previously and was cleared. No other complaints at this time. ED Course: He comes to the ED afebrile, with a temperature of 150/87, heart rate 68, respiratory rate 18, saturating 97% on room air. He was worked up was found to have a white count of 8, hemoglobin 13.8, MCV 87, PT/INR of 15.8/1.5 respectively, sodium 138, chloride 105, potassium 4.3, creatinine 1.7, glucose 329, magnesium 1.9, blood alcohol level within normal limits, AST ALT within normal limits, ammonia within normal limits, troponin negative x 1, urinalysis shows +1 blood, 4 RBCs, however no leukocyte esterase or nitrates, urine toxicology negative. Head CT did not show acute hemorrhage, midline shift or mass effect. EKG showed heart rate of 58 with A-fib. PMHx: As above Surgeries: Unknown at this time Meds: Unsure if takes aspirin, Warafarin , Metformin, Glyburide, Amlodipine, Oxybutynin Allergies: Tuna oil Family Hx: No family history of dementia, stroke, heart disease, however family hx significant for kidney disease (majority of siblings) Social Hx: Lives with his son, no EtOH, oral or IV drugs, no smoking hx at this time. Review of Systems Review of Systems Narrative Review of Systems: 12 point ROS reviewed and is otherwise negative unless stated directly in the HPI Exam Vital Signs Temp Pulse Resp BP Pulse Ox O2 Del Method 98.4 F 71 18 155/90 H 99 Room Air 08/18/25 22:53 08/18/25 22:53 08/18/25 22:53 08/19/25 00:00 08/18/25 22:53 08/18/25 19:58 Narrative Exam General: AAOx2, NAD, pleasant, Faroese speaking male HEENT: Moist mucous membranes, conjunctiva clear, EOMI, PERRLA, Cardiovascular: S1, S2, radial pulses +2 bilat, RRR Pulmonary: CTAB bilat no cough, no wheezing GI: No tenderness to light or deep palpitation, no guarding, rigidity, rebound tenderness or distension Extremities: No presence of trace or pitting edema in lower extremities bilaterally, dorsalis pedis pulses +2 bilaterally Neuro: AAOx2, not alert to time, no focal motor or sensory deficits in the UE or LE bilat Psych: Able to cooperate Results: Labs 08/21/25 04:36 08/21/25 04:36 Labs: Short CBC 08/18/25 Range/Units 20:45 WBC 8.1 (3.8-10.6) Thou/mm3 Hgb 13.8 (13.5-16.0) g/dL Hct 40.0 L (41.0-53.0) % Plt Count 244 (140-440) Thou/mm3 BMP 08/18/25 20:45 Sodium 138 Potassium 4.3 Chloride 105 Carbon Dioxide 23.9 BUN 16 Creatinine 1.7 H Glucose 329 H Calcium 9.0 Cardiac Enzymes 08/18/25 Range/Units 20:45 Troponin I < 0.020 (0.0-0.045) ng/mL Liver Function 08/18/25 Range/Units 20:45 Total Bilirubin 0.8 (0.3-1.2) mg/dL AST 19 (0-34) U/L ALT 17 (10-49) U/L Alkaline Phosphatase 117 H (46-116) U/L Albumin 4.3 (3.4-4.8) gm/dL Urine 08/18/25 Range/Units 11:41 Urine Color Yellow (Lt Yel-Yel) Urine Clarity Clear (Clear/Hazy) Urine pH 6.0 (5.0-7.0) Ur Specific [place] 1.019 (1.001-1.035) Urine Protein 1+ A (Neg - Trace) Urine Glucose (UA) 4+ A (Negative) Quality Measures Quality Measures VTE prophylaxis Advance care planning discussed with:: patient and child Medications Home Medications and Allergies Home Medications ?Medication ?Instructions ?Recorded ?Confirmed ?Type amlodipine 10 mg tablet (Norvasc) 10 mg PO QDAY 10/14/20 08/19/25 History olmesartan 40 mg tablet 40 mg PO .once 08/19/25 08/19/25 History Allergies Allergy/AdvReac Type Severity Reaction Status Date / Time tuna oil Allergy Severe Hives Verified 08/18/25 19:48 Visit Medications Discontinued Medications Sodium Chloride (Ns) 500 mls @ 500 mls/hr IV .Q1H ONE Stop: 08/18/25 21:24 Last Admin: 08/18/25 23:32 Dose: 500 mls/hr Assessment & Plan Plan Assessment: 79 y/o male with PMHx of HTN, Afib (On Warfarin), BPH s/p TURP, overactive bladder, HLD, T2DM, and previous CVA (Basal ganglia) who is currently admitted for acute encephalopathy. #Acute encephalopathy #History of CVA DDx: Infectious, metabolic, dementia Head CT within normal limits Urinalysis unremarkable U tox unremarkable This could be acute on chronic encephalopathy Patient does not have a formal diagnosis of dementia, however some of the patient's symptoms including unable to recognize people has been going on for some time Ammonia within normal limits Low suspicion for stroke at this time considering neurologic exam Low suspicion for frontotemporal dementia as patient is not aggressive at this time nor previously Plan: ? Neuro consulted, appreciate recommendations ? B12 ? TSH ? Syphilis ? Will hold off on MRI at this time #A-fib, rate controlled [id number]: 6 HAS-BLED: 3 Rate: Controlled Rhythm: Irregular AC: Warfarin INR 1.5 -> Subtherapeutic Plan: ? Telemetry ? Keep magnesium and potassium above 2 and 4 respectively ? Pharmacy to dose Warfarin #Hypertension #Hyperlipidemia Chronic Plan: ? Holding blood pressure medicines as blood pressures soft at this point ? Resumed home Lipitor 80 mg at bedtime #CKD, stage IIIa Cr 1.7, baseline seems to be around 1.6 Plan: ? 500 cc bolus ? Avoid nephrotoxic agents ? Renally dose medicines ? Trend CMP #Non-insulin dependent Type II Diabetes mellitus Chronic Plan: ? Sliding scale insulin ? Hypoglycemic protocol in place ? Blood sugar checks with meals #Health Maintenance Disposition: Med-Tele DVT prophylaxis: SCDs GI prophylaxis: Protonix Diet: Carb low CODE STATUS: Full Patient seen and care discussed with my attending physician, Dr. Dorita Hayden, PGY-2 This document was transcribed using voice recognition technology. Minor inaccuracies may be present. Attending Provider Attestation/Addendum After examination of the patient and review of the clinical data I feel that this patient needs admission to the hospital for further treatment/evaluation. Plan of care discussed with patient and is in agreement. I Susi Kevin MD, attest that I was physically present for velez portions of evaluation, and examined patient, labs and imagings and plan of care were discussed with IM residents team, and I agree with the findings and plans documented above.
[2025-08-19] MEDS: ATORVASTATIN CALCIUM 10 MG TABLET 80 MG PO ×2 (01:26→21:16)
[2025-08-19] MEDS: INSULIN HUM REGULAR 1 UNIT/0.01 ML (PER UNIT) 5 UNIT IV (01:51)
--- NOTE | 2025-08-19 03:51 | PC.NURSE ---
attempted to do med rec, pt unable to list medication, son nathaniel states he will bring medication list in the morning when he comes to visit.
[2025-08-19 06:44] LABS: Basophils # (Auto) 0.1 Thou/mm3 (0.0-0.2); Basophils % (Auto) 1 % (0-2.5); Eosinophils # (Auto) 0.5 Thou/mm3 (0.0-0.5); Eosinophils % (Auto) 6 % (0-10); Hematocrit 40.0 % (41.0-53.0); Hemoglobin 13.9 g/dL (13.5-16.0); Immature Granulocytes Auto 0.01 Thou/mm3 (0.00-0.00); Lymphocytes # (Auto) 1.3 Thou/mm3 (1.0-4.8); Lymphocytes % (Auto) 16 % (10-50); Mean Corpuscular HGB Conc 34.8 g/dl (31.0-37.0); Mean Corpuscular Hemoglobin 29.6 pg (25.0-35.0); Mean Corpuscular Volume 85 fL (80-100); Monocytes # (Auto) 0.8 Thou/mm3 (0.0-0.8); Monocytes % (Auto) 10 % (0-12); Neutrophils # (Auto) 5.3 Thou/mm3 (1.8-7.7); Neutrophils % (Auto) 67 % (37-80); Nucleated Red Blood Cell # 0.00 Thou/mm3 (0.00-0.00); Nucleated Red Blood Cell % 0 /100 WBC (0); Platelet Count 244 Thou/mm3 (140-440); RDW Standard Deviation 38.9 fL (35.1-43.9); Red Blood Count 4.69 Miln/mm3 (4.50-5.90); White Blood Count 8.0 Thou/mm3 (3.8-10.6)
[2025-08-19 06:59] LABS: INR 1.5 (0.9-1.3); Partial Thromboplastin Time 34.6 Seconds (22.0-36.0); Prothrombin Time 15.3 Seconds (9.0-12.2)
[2025-08-19 07:18] LABS: Alanine Aminotransferase 15 U/L (10-49); Albumin, Serum 4.0 gm/dL (3.4-4.8); Albumin/Globulin Ratio 1.4 (1.2-2.2); Alkaline Phosphatase 105 U/L (46-116); Anion Gap 9 (7-16); Aspartate Amino Transferase 17 U/L (0-34); BUN/Creatinine Ratio 11 Ratio (12-20); Bilirubin,Total 1.2 mg/dL (0.3-1.2); Blood Urea Nitrogen 17 mg/dL (9-23); Calcium 8.9 mg/dL (8.3-10.6); Calcium (Corrected) 8.9 mg/dL (8.5-10.1); Carbon Dioxide 23.6 mMol/L (20.0-31.0); Cardiac Risk Estimate 4.0 RATIO (4.0-6.7); Chloride 107 mMol/L (98-107); Cholesterol 120 mg/dL (132-200); Creatinine (Component) 1.5 mg/dL (0.6-1.3); Estimated Creatinine Clearance 45.9 mL/min (>60); Globulin 2.8 gm/dL (2.3-3.5); Glucose 180 mg/dL (74-106); HDL Cholesterol 30 mg/dL (40-60); LDL Cholesterol,Calculated 67 mg/dL (0-130); Magnesium 2.1 mg/dL (1.6-2.6); Osmolality,Calculated 285 (275-295); Phosphorous 3.2 mg/dL (2.4-5.1); Potassium 3.6 mMol/L (3.4-5.1); Sodium 140 mMol/L (136-145); Total Protein 6.8 gm/dL (5.7-8.2); Triglycerides 113 mg/dL (30-150); eGFR 47 See Note
[2025-08-19 07:20] LABS: Syphilis Nonreactive (Nonreactive)
[2025-08-19] MEDS: INSULIN LISPRO (AdmeLOG) 1 UNIT/0.01 ML UNIT SC ×3 (07:28→17:09)
--- NOTE | 2025-08-19 08:16 | XR_ITS ---
EXAMINATION: AP chest single view TECHNIQUE: AP portable upright chest single view Date and time: August 19, 2025, 0918 hours, comparison October 13, 2021 INDICATIONS: Coughing congestion today. FINDINGS: Mild enlargement cardiac contour. Mild accentuation basilar bronchovascular markings. No lobar pneumonia or pulmonary edema Prominent osteopenia IMPRESSION: Mild basilar bronchitis pattern
[2025-08-19] MEDS: OXYBUTYNIN CHLOR 5 MG TABLET PO (09:05)
--- NOTE | 2025-08-19 10:21 | ESCONSULT_ITS ---
<Statement entered by Kaykay Wing MD - 08/22/25 17:27> I personally examined evaluated this patient is well-known to me now longstanding history of dementia hypertension atrial fibrillation chronic was on Coumadin not taking the medication noncompliant came with a heart rate fast because not taking medication currently rates controlled well anticoagulated discussed Coumadin appears to be not a good choice now because of dementia and noncompliance recommend the patient to be treated with Eliquis. Evaluate patient with resident physician PGY [address] DR. GRAY agree with the treatment plan recommendation as documented HPI Data of Consult Requesting Physician: Susi Kevin MD Admitting Provider: Susi Kevin MD Attending Provider: Susi Kevin MD Primary Care Provider: Tay Hassan MD Consult Narrative Reason for consult: Atrial fibrillation History of present illness: 79-year-old Sammarinese-speaking male with past medical history of hypertension, insulin-dependent type 2 diabetes, prostate surgery for prostatomegaly, hyperlipidemia, chronic atrial fibrillation on warfarin, CKD stage II, dementia likely vascular presenting to the hospital on 08/18 for confusion and wandering around per patient's family. Patient takes blood thinner and follows up with cardiology; however, INR levels have been consistently erratic secondary to poor compliance with medications. Patient has had noninvasive cardiac assessment in the past with negative nuclear imaging and normal perfusion scans. Patient usually on 4 mg warfarin twice a week and 2 mg rest of the week but currently INR is not in the therapeutic range. Patient noted by hospitalist team for acute encephalopathy likely metabolic versus underlying dementia worsening. Neurology has been consulted for recommendations. Past medical history: As stated above Surgeries: Prostate surgery Allergies: NKDA Medications: Amlodipine, atorvastatin, Lantus 14 units daily, olmesartan, warfarin as above Family history: No significant family history of heart disease Social history: Patient lives with son denies any tobacco, alcohol or illicit drug use ROS: All 12 systems assessed and the patient denies unless otherwise stated in HPI Cardiology consulted for recommendations regarding patient's atrial fibrillation with EKG obtained showing A-fib with SVR and left axis deviation. cc:: cc: Susi Kevin MD Exam Vital Signs Temp Pulse Resp BP Pulse Ox O2 Del Method 97.1 F 65 18 143/99 H 99 Room Air 08/19/25 07:40 08/19/25 07:40 08/19/25 07:40 08/19/25 07:40 08/19/25 07:40 08/19/25 07:40 Narrative Exam General: Awake answering questions appropriately in Sammarinese, appears stated age HEENT: Moist mucous membranes, conjunctiva clear, EOMI, PERRLA, Cardiovascular: S1, S2, radial pulses +2 bilat, irregularly irregular Pulmonary: CTAB bilat no cough, no wheezing GI: No tenderness to light or deep palpitation, no guarding, rigidity, rebound tenderness or distension Extremities: No presence of trace or pitting edema in lower extremities bilaterally, dorsalis pedis pulses +2 bilaterally Neuro: AAOx2, not alert to time, no focal motor or sensory deficits in the UE or LE bilat Results Labs 08/19/25 05:40 08/19/25 05:40 Labs: Short CBC 08/18/25 08/19/25 Range/Units 20:45 05:40 WBC 8.1 8.0 (3.8-10.6) Thou/mm3 Hgb 13.8 13.9 (13.5-16.0) g/dL Hct 40.0 L 40.0 L (41.0-53.0) % Plt Count 244 244 (140-440) Thou/mm3 BMP 08/18/25 08/19/25 20:45 05:40 Sodium 138 140 Potassium 4.3 3.6 D Chloride 105 107 Carbon Dioxide 23.9 23.6 BUN 16 17 Creatinine 1.7 H 1.5 H Glucose 329 H 180 H D Calcium 9.0 8.9 Cardiac Enzymes 08/18/25 Range/Units 20:45 Troponin I < 0.020 (0.0-0.045) ng/mL Liver Function 08/18/25 08/19/25 Range/Units 20:45 05:40 Total Bilirubin 0.8 1.2 (0.3-1.2) mg/dL AST 19 17 (0-34) U/L ALT 17 15 (10-49) U/L Alkaline Phosphatase 117 H 105 (46-116) U/L Albumin 4.3 4.0 (3.4-4.8) gm/dL Urine 08/18/25 Range/Units 11:41 Urine Color Yellow (Lt Yel-Yel) Urine Clarity Clear (Clear/Hazy) Urine pH 6.0 (5.0-7.0) Ur Specific [place] 1.019 (1.001-1.035) Urine Protein 1+ A (Neg - Trace) Urine Glucose (UA) 4+ A (Negative) Quality Measures Quality Measures none Advance care planning discussed with:: patient Medications Home Medications and Allergies Home Medications ?Medication ?Instructions ?Recorded ?Confirmed ?Type amlodipine 10 mg tablet (Norvasc) 10 mg PO QDAY 08/19/25 History insulin glargine 100 unit/mL (3 14 unit subcut QDAY 08/19/25 History mL) subcutaneous pen (Lantus Solostar U-100 Insulin) olmesartan 40 mg tablet 40 mg PO .once 08/19/2506/05 History vit D3-folic acid-vit B2-B6-B12 1 tab PO .once 5 08/19/25 History 2,000 unit-800 mcg-0.32 mg tablet warfarin 1 mg tablet 1 mg PO .once daily 08/19/25 08/19/25 History Allergies Allergy/AdvReac Type Severity Reaction Status Date / Time tuna oil Allergy Severe Hives Verified 08/18/25 19:48 Visit Medications Albuterol/Ipratropium (Albuterol/Ipratropium (Duoneb) Rt Essence 3 Ml Nebu) 3 ml INH Q6HRRT PRN PRN Reason: SHORTNESS OF BREATH OR WHEEZE Stop: 09/18/25 00:57 Atorvastatin Calcium (Atorvastatin Calcium 10 Mg Tablet) 80 mg PO HS JACKIE Stop: 09/18/25 01:04 Last Admin: 08/19/25 01:26 Dose: 80 mg Dextrose (Dextrose 50%-Water Inj 50 Ml Syringe) 25 ml IV Q15MIN PRN PRN Reason: BG 50-70 responsive npo pt Stop: 09/18/25 01:03 Dextrose (Dextrose 50%-Water Inj 50 Ml Syringe) 50 ml IV Q15MIN PRN PRN Reason: BG <50 OR BG <70 & pt unresponsive Stop: 09/18/25 01:03 Docusate Sodium (Docusate Sod 100 Mg Capsule) 100 mg PO QDAY PRN; Protocol PRN Reason: CONSTIPATION Stop: 09/18/25 00:57 Glucagon (Glucagon Inj 1 Mg Vial) 1 mg IM Q15MIN PRN PRN Reason: BG <70, and no IV access Insulin Human Lispro (Insulin Lispro (Admelog) 1 Unit/0.01 Ml Unit) 0 unit SC AC [facility]; Protocol Stop: 09/18/25 07:29 Last Admin: 08/19/25 07:28 Dose: 1 unit Ondansetron HCl (Ondansetron Inj 2 Mg/Ml Inj 2 Ml) 4 mg IVP Q6H PRN; Protocol PRN Reason: NAUSEA OR VOMITING Stop: 09/18/25 00:57 Oxybutynin Chloride (Oxybutynin Chlor 5 Mg Tablet) 5 mg PO QDAY [facility] Stop: 09/18/25 08:59 Last Admin: 08/19/25 09:05 Dose: 5 mg Pantoprazole Sodium (Pantoprazole Inj 40 Mg Vial) 40 mg IVP QDAY [facility] Stop: 09/18/25 08:59 Last Admin: 08/19/25 09:05 Dose: 40 mg Pharmacy Consult (Pharmacy To Dose Warfarin) 1 each PO QDAY PRN PRN Reason: CONSULT Stop: 09/18/25 10:05 Warfarin Sodium (Warfarin 1 Mg Tablet) 2 mg PO 1200 ONE Stop: 08/19/25 12:01 Discontinued Medications Sodium Chloride (Ns) 500 mls @ 500 mls/hr IV .Q1H ONE Stop: 08/18/25 21:24 Last Infusion: 08/19/25 00:32 Dose: Infused Magnesium Sulfate/Dextrose (Magnesium Sulfate Ivpb) 1 gm in 100 mls @ 100 mls/hr IV X1 ONE Stop: 08/19/25 02:35 Last Admin: 08/19/25 02:47 Dose: 100 mls/hr Insulin Human Regular (Insulin Hum Regular 1 Unit/0.01 Ml (Per Unit)) 5 unit IV X1 ONE Stop: 08/19/25 01:22 Last Admin: 08/19/25 01:51 Dose: 5 unit Warfarin Sodium (Warfarin 1 Mg Tablet) 1 mg PO QDAY [facility] Stop: 09/02/25 08:59 Warfarin Sodium (Warfarin 1 Mg Tablet) 1 mg PO QDAY@1200 JACKIE Stop: 09/02/25 11:59 Assessment & Plan Plan 79-year-old Sammarinese-speaking male with past medical history of hypertension, insulin-dependent type 2 diabetes, prostate surgery for prostatomegaly, hyperlipidemia, chronic atrial fibrillation on warfarin, CKD stage II, dementia likely vascular presenting to the hospital for confusion and wandering around per patient's family. Cardiology consulted for recommendations regarding patient's atrial fibrillation with EKG obtained showing A-fib with SVR and left axis deviation. #Chronic A-fib [id number]: 6 HAS-BLED: 3 As noted above, patient has chronic atrial fibrillation which was controlled without any rate/rhythm control medications Patient is on warfarin 4 mg twice a week and 2 mg rest of the week; however, there is some concern for medication noncompliance as patient's INR checked frequently at cardiology varied between therapeutic and subtherapeutic Patient's presenting to the hospital with EKG showing A-fib with SVR and left axis deviation but patient denies having any active chest pain, shortness of breath or other concerning cardiac symptoms Patient's INR subtherapeutic currently with INR 1.5 Plan: Continue monitoring on telemetry Keep magnesium greater than 2 and potassium greater than 4 Discontinue warfarin and start Eliquis 5 mg p.o. twice daily Please follow-up with cardiology once stable to be discharged within 1 week #Acute encephalopathy #History of CVA #Hypertension #Hyperlipidemia #CKD, stage IIIa #Non-insulin dependent Type II Diabetes mellitus Rest of medical problems to be managed by the primary hospitalist team Patient seen and assessed with attending Dr. Wing I have personally seen and examined the patient. I agree with the resident's assessment and plan as documented below. Itz Gray, DO PGY-2 Internal Medicine - [facility]
[2025-08-19] MEDS: WARFARIN 1 MG TABLET 2 MG PO (11:36)
--- NOTE | 2025-08-19 11:50 | ESPR_ITS ---
<Statement entered by Vish Medeiros MD - 08/31/25 07:57> I reviewed above note and agree with findings and plans. I have also personally examined the patient with medicine team and went over assessment and plan with medical team including international account manager and resident physician. Documentation for date of: 08/19/25 Subjective Subjective Interval history: Patient seen and examined this morning with his son at bedside. Son reports no new episodes of confusion, agitation, or wandering since admission. Patient remains calm and cooperative but continues to have intermittent disorientation to time and place. He was able to state his name and recognize his son but could not recall the current date or the name of the hospital. Denies headache, dizziness, vision changes, chest pain, shortness of breath, abdominal pain, or urinary symptoms. Appetite and oral intake are adequate. No fevers or chills reported overnight. Son confirms that over the past year, the patient?s memory and recognition of family members have been gradually declining, with fluctuating ?good? and ?bad? days. No recent infections, medication changes, or new neurologic symptoms. Patient appears comfortable and in good spirits, occasionally joking with staff, consistent with his baseline personality per son. Exam Vital Signs Temp Pulse Resp BP Pulse Ox O2 Del Method 97.1 F 70 18 143/99 H 99 Room Air 08/19/25 07:40 08/19/25 08:00 08/19/25 07:40 08/19/25 07:40 08/19/25 07:40 08/19/25 07:40 Narrative Exam General: Pleasant, in no distress, appears older than stated age. Neuro: AAOx2 (person and place only), calm, no focal deficits, moves all extremities. HEENT: PERRLA, EOMI, mucous membranes moist. Cardiac: Irregularly irregular rhythm, rate controlled, no murmurs. Lungs: Clear to auscultation bilaterally, no wheezes or crackles. Abdomen: Soft, non-tender, non-distended, normal bowel sounds. Extremities: No edema, pulses +2 bilaterally. Skin: Warm, dry, intact. Objective Labs 08/19/25 05:40 08/19/25 05:40 Labs: Laboratory Results - last 24 hr 08/18/25 08/18/25 08/19/25 11:41 20:45 05:40 WBC 8.1 8.0 RBC 4.58 4.69 Hgb 13.8 13.9 Hct 40.0 L 40.0 L MCV 87 85 MCH 30.1 29.6 MCHC 34.5 34.8 RDW Std Deviation 40.6 38.9 Plt Count 244 244 Neut % (Auto) 69 67 Lymph % (Auto) 17 16 [place] % (Auto) 9 10 Eos % (Auto) 4 6 Baso % (Auto) 1 1 Neut # (Auto) 5.6 5.3 Lymph # (Auto) 1.4 1.3 [place] # (Auto) 0.8 0.8 Eos # (Auto) 0.3 0.5 Baso # (Auto) 0.1 0.1 Immature Gran # (Auto) 0.02 H 0.01 H Absolute Nucleated RBC 0.00 0.00 Immature Gran % 0 0 Nucleated RBC % 0 0 PT 15.8 H 15.3 H INR 1.5 H 1.5 H APTT 35.0 34.6 Sodium 138 140 Potassium 4.3 3.6 D Chloride 105 107 Carbon Dioxide 23.9 23.6 Anion Gap 9 9 BUN 16 17 Creatinine 1.7 H 1.5 H Estim Creat Clear Calc 40.5 L 45.9 L eGFR 41 L 47 L BUN/Creatinine Ratio 9 L 11 L Glucose 329 H 180 H D Calculated Osmolality 289 285 Calcium 9.0 8.9 Corrected Calcium 9.0 8.9 Phosphorus 3.2 Magnesium 1.9 2.1 Total Bilirubin 0.8 1.2 AST 19 17 ALT 17 15 Alkaline Phosphatase 117 H 105 Ammonia < 10 L Troponin I < 0.020 Total Protein 7.6 6.8 Albumin 4.3 4.0 Globulin 3.3 2.8 Albumin/Globulin Ratio 1.3 1.4 Triglycerides 113 Cholesterol 120 L LDL Cholesterol, Calc 67 HDL Cholesterol 30 L Cholesterol/HDL Ratio 4.0 TSH 2.52 Cancelled Ur Collection Type Clean Catch Urine Color Yellow Urine Clarity Clear Urine pH 6.0 Ur Specific [place] 1.019 Urine Protein 1+ A Urine Glucose (UA) 4+ A Urine Ketones Negative Urine Blood 1+ A Urine Nitrite Negative Urine Bilirubin Negative Urine Urobilinogen (Auto) Negative Ur Leukocyte Esterase Negative Urine RBC 4 H Urine WBC 1 Ur Squamous Epith Cells 2 Amorphous Crystals Present A Urine Bacteria Rare Ur Culture Indicated? Not Indicated Salicylates < 3.0 Urine Opiates Screen Negative Urine Fentanyl Screen Negative Acetaminophen < 2.0 L Ur Barbiturates Screen Negative U Amphetamin/Meth Scrn Negative U Benzodiazepines Scrn Negative U Cocaine Metab Screen Negative U Marijuana (THC) Screen Negative Ethyl Alcohol < 3.0 Syphilis Serology Nonreactive Quality Measures Quality Measures VTE prophylaxis Advance care planning discussed with:: patient Assessment & Plan Assessment Current Active Medications: Generic Name Dose Route Start Last Admin Trade Name Freq PRN Reason Stop Dose Admin Albuterol/Ipratropium 3 ml 08/19/25 00:58 Albuterol/Ipratropium (Duoneb) Rt Essence 3 Ml Nebu INH 09/18/25 00:57 Q6HRRT PRN SHORTNESS OF BREATH OR WHEEZE Atorvastatin Calcium 80 mg 08/19/25 01:05 08/19/25 01:26 Atorvastatin Calcium 10 Mg Tablet PO 09/18/25 01:04 80 mg HS JACKIE Administration Dextrose 25 ml 08/19/25 01:04 Dextrose 50%-Water Inj 50 Ml Syringe IV 09/18/25 01:03 Q15MIN PRN BG 50-70 responsive npo pt Dextrose 50 ml 08/19/25 01:04 Dextrose 50%-Water Inj 50 Ml Syringe IV 09/18/25 01:03 Q15MIN PRN BG <50 OR BG <70 & pt unresponsive Docusate Sodium 100 mg 08/19/25 00:58 Docusate Sod 100 Mg Capsule PO 09/18/25 00:57 QDAY PRN CONSTIPATION Protocol Glucagon 1 mg 08/19/25 01:04 Glucagon Inj 1 Mg Vial IM Q15MIN PRN BG <70, and no IV access Insulin Human Lispro 0 unit 08/19/25 07:30 08/19/25 11:34 Insulin Lispro (Admelog) 1 Unit/0.01 Ml Unit SC 09/18/25 07:29 3 unit AC JACKIE Administration Protocol Ondansetron HCl 4 mg 08/19/25 00:58 Ondansetron Inj 2 Mg/Ml Inj 2 Ml IVP 09/18/25 00:57 Q6H PRN NAUSEA OR VOMITING Protocol Oxybutynin Chloride 5 mg 08/19/25 09:00 08/19/25 09:05 Oxybutynin Chlor 5 Mg Tablet PO 09/18/25 08:59 5 mg QDAY JACKIE Administration Pantoprazole Sodium 40 mg 08/19/25 09:00 08/19/25 09:05 Pantoprazole Inj 40 Mg Vial IVP 09/18/25 08:59 40 mg QDAY JACKIE Administration Pharmacy Consult 1 each 08/19/25 10:06 Pharmacy To Dose Warfarin PO 09/18/25 10:05 QDAY PRN CONSULT Warfarin Sodium 2 mg 08/19/25 12:00 08/19/25 11:36 Warfarin 1 Mg Tablet PO 08/19/25 12:01 2 mg 1200 ONE Administration Plan 79-year-old male with chronic Afib and erratic INR due to poor compliance, now presenting with acute confusion likely from dementia progression. EKG with Afib and SVR, stable hemodynamics. Recommend transition from warfarin to Eliquis, maintain electrolyte targets, and arrange close outpatient cardiology follow-up. #Acute Encephalopathy #Progressive Dementia Likely acute on chronic encephalopathy in the setting of evolving neurodegenerative dementia. Infectious, metabolic, and structural causes have been ruled out so far. Differential: -Alzheimer?s disease (most likely) -Vascular dementia (prior basal ganglia stroke, vascular risk factors) -Lewy body dementia (no hallucinations or parkinsonism noted) -Frontotemporal dementia (less likely, no personality changes) Plan: * Follow up B12, RPR, and CXR. * Maintain low-stimulation environment and good sleep hygiene. * Reorient patient frequently. * Continue to monitor mentation and safety. * Arrange outpatient neurology follow-up for formal dementia evaluation and management. * Family educated on progression and importance of supervision and driving cessation. #Chronic Atrial Fibrillation (Rate Controlled) CHADSVASc = 6 (age, HTN, DM, prior CVA) HAS-BLED= 3 (HTN, age, labile INR) Subtherapeutic INR 1.5; history of erratic INR due to poor compliance with warfarin regimen. No symptoms of ACS, heart failure, or rate-related instability. Plan: * Continue telemetry monitoring. * Maintain electrolytes (K >4, Mg >2). * Discontinue warfarin and initiate Eliquis 5 mg PO BID for anticoagulation. * Recheck renal function prior to discharge; adjust dose if GFR <30. * Outpatient cardiology follow-up within one week after discharge. * Reinforce medication compliance with patient and family. #Hypertension #Hyperlipidemia BP currently soft; holding antihypertensives. Plan: * Continue Lipitor 80 mg nightly. * Reassess BP daily; resume amlodipine when stable. Chronic Kidney Disease (Stage IIIa) Cr improved to 1.5. Plan: * Avoid nephrotoxins. * Trend renal function daily. * Continue hydration and renally adjust meds. #Type 2 Diabetes Mellitus Glucose elevated on admission, now improving. Plan: * Continue sliding scale insulin. * A1c pending. * Maintain carb-controlled diet. * Hypoglycemia protocol in place. #Health Maintenance Disposition: Med-Tele DVT prophylaxis: SCDs GI prophylaxis: Protonix Diet: Carb low CODE STATUS: Full ----- Plan discussed with attending physician Dr. Mala Costello MD PGY-1 Internal Medicine
--- NOTE | 2025-08-19 13:46 | PC.SS ---
Closet Organizer (VICENTA Russell met with the patient and son at the bedside to complete an initial assessment and discuss a discharge plan. Patient is alert and oriented to person, place, and situation; patient provided verbal consent to participate in the assessment. Patient's past medical history includes HTN, Afib (On Warfarin), BPH s/p TURP, overactive bladder, HLD, T2DM, and previous CVA (Basal ganglia). The patient presented to the ED for evaluation of acute encephalopathy. Patient is Eugene Iniguez, 79 y/o Estonian-speaking male residing with his at [address] [place] [address]. Patient designated her son, Eugene Eldridge, , as his surrogate medical decision maker. Patient also asked to add his daughter, Maco Eldridge, , and to remove Soraida Eldridge. Patient is retired and receiving social security benefits. Patient reports baseline is independent with no DME. Patient's PCP is Dr. Soraida Cabrera. Patient reports that lately he has become confused and has driven either to [place] or [place] without realizing he is so far out from home. Patient's discharge plan is home independent; son will provide transportation. Surrogate medical decision maker: Son, Eugene Eldridge, Discharge plan: Home
--- NOTE | 2025-08-19 16:41 | PD.TNEURO ---
Tele Neuro Consultation Consultation Date 08/19/25 [facility] TeleNeurology Consult Services Routine Consult New Patient Name:???nathaniel messer Date of :???1945 Identification Number:??? 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 - EEG - b12/folate/RPR/vitamin D25OH - PT/OT/SALES MARKETING COORDINATOR eval/treat - with his extreme wandering behavior does not seem appropriate to drive and need to review local resources for him and family - neurology to follow Our recommendations are outlined below Nursing Recommendations :Delirium precautions: Blinds open during the day, closed at night, frequent reorientation, minimize nighttime interruptionsWhen possible avoid benzodiazepines, opioid pain medications, and anticholinergic medications Consultations :Toxic metabolic work up per primary team Disposition :Neurology will follow Chief Complaint: AMS, delirium History of Present Illness: Patient is a 79 year old Male. 79 yo male with h/o htn, dm, and concern for cognitive impairment- he speaks italian only, family at bedside helps with interpretation as well as daughter on the phone - patient states that he somehow passed out however daughter clarifies that he got in the car and drove to [place] for 2 days, they couldn't find him, they had to have a missing persons case with the local police, they had a tracker on him, he was returned then left again the next day they are concerned because he was very confused, new wandering behavior, has h/o stroke in the past ? Past Medical History: ?Hypertension ?Stroke Medications: No Anticoagulant use? No Antiplatelet use Reviewed EMR for current medications Allergies:? Reviewed Social History: Patient Is: Smoking: No Alcohol Use: No Drug Use: No Family History: There is no family history of premature cerebrovascular disease pertinent to this consultation ROS : 14 Points Review of Systems was performed and was negative except mentioned in HPI. Past Surgical History: There Is No Surgical History Contributory To Today?s Visit Examination 1A: Level of Consciousness - Alert; keenly responsive?+ 0 1B: Ask Month and Age - Could Not Answer Either Question Correctly?+ 2 1C: Blink Eyes & Squeeze Hands - Performs Both Tasks?+ 0 2: Test Horizontal Extraocular Movements - Normal?+ 0 3: Test Visual Elena - No Visual Loss?+ 0 4: Test Facial Palsy (Use Grimace if Obtunded) - Normal symmetry?+ 0 5A: Test Left Arm Motor Drift - No Drift for 10 Seconds?+ 0 5B: Test Right Arm Motor Drift - No Drift for 10 Seconds?+ 0 6A: Test Left Leg Motor Drift - No Drift for 5 Seconds?+ 0 6B: Test Right Leg Motor Drift - No Drift for 5 Seconds?+ 0 7: Test Limb Ataxia (FNF/Heel-Boland) - No Ataxia?+ 0 8: Test Sensation - Normal; No sensory loss?+ 0 9: Test Language/Aphasia - Normal; No aphasia?+ 0 10: Test Dysarthria - Normal?+ 0 11: Test Extinction/Inattention - No abnormality?+ 0 NIHSS Score:?2 NIHSS Free Text :?follows commands, states its February and for the year states its 5 ? This consult was conducted in real time using interactive audio and video technology. Patient was informed of the technology being used for this visit and agreed to proceed. Patient located in hospital and provider located at home/office setting. Telehealth Neurology consultation was provided. I spent 35 minutes providing telehealth care. This includes time spent for face to face visit via telemedicine, review of medical records, imaging studies and discussion of findings with providers, the patient and/or family. Dr Tamera Conroy [facility] For Inpatient follow-up with [facility] physician please call [facility] at . As we are not an outpatient service for any post hospital discharge needs please contact the hospital for assistance. If you have any questions for the [facility] physicians or need to reconsult for clinical or diagnostic changes please contact us via [facility] at Signature :?Tamera Rafiq ? Most Recent Vital Signs Last Vital Signs Temp 97.6 F 08/19/25 11:50 Pulse 65 08/19/25 12:00 Resp 18 08/19/25 11:50 BP 151/88 H 08/19/25 11:50 Pulse Ox 97 08/19/25 11:50 O2 Del Method Room Air 08/19/25 11:50 Laboratory-Coagulation Panel PT 15.3 Seconds (9.0-12.2) H 08/19/25 05:40 INR 1.5 (0.9-1.3) H 08/19/25 05:40 APTT 34.6 Seconds (22.0-36.0) 08/19/25 05:40
--- NOTE | 2025-08-19 16:43 | XR_ITS ---
Examination: MRI brain without intravenous contrast. Date and time of exam: August 19, 2025, 1742 hours, comparison October 14, 2021 INDICATIONS: Altered mental status confusion beginning 2 days ago Technique: Multiple axial and sagittal images of the brain obtained. Siemens high-resolution 1.5 Krystin short bore scanners utilized. Sagittal sections, T1-weighted, TR 500, TE 14, are performed. Axial sections proton-density and T2-weighted have been obtained. Inversion recovery axial images, TR 9, 260, TE 111, TI 2500. Diffusion weighted images, axial sections, TR 4800, TE 128, B value 1000 Axial sections, ADC map, TR 4800, TE 128 Findings: Enlargement of the sella turcica is not present. The optic chiasm and infundibular are not remarkable. Prepontine and interpeduncular cisterns are not enlarged. There is no localized enlargement of the medulla or gissel. Fourth ventricle and cerebellar tonsils appear normal in position. No subacute area of hemorrhage density is seen. Mass in the cerebellopontine angle region is not evident. Globes symmetrical. Orbital musculature including medial lateral rectus muscles do not exhibit abnormality. Diffusion-weighted images demonstrate no focus of restricted diffusion. Increased white matter signal mild Significant chronic pansinusitis Mass effect upon the ventricular system is not identified. Impression: Negative for acute hemorrhage mass effect or midline shift No acute infarct
[2025-08-19] MEDS: APIXABAN 2.5 MG TABLET 5 MG PO (21:16)
[2025-08-20] VITALS (10 sets, daily range): BP systolic 124–179; BP diastolic 84–105; PULSE 57–109; RESP 16–98; TEMP 36.3–37; O2SAT 95–100
[2025-08-20] MEDS: hydrALAZINE INJ 20 MG/ML VIAL 10 MG IVP (00:44)
--- NOTE | 2025-08-20 02:30 | PC.NURSE ---
MD Reis made aware that pts having loose stool 2x at this time, per MD he cant give any diarrhea meds at this time.
[2025-08-20 05:40] LABS: Basophils # (Auto) 0.1 Thou/mm3 (0.0-0.2); Basophils % (Auto) 1 % (0-2.5); Eosinophils # (Auto) 0.2 Thou/mm3 (0.0-0.5); Eosinophils % (Auto) 2 % (0-10); Hematocrit 40.3 % (41.0-53.0); Hemoglobin 14.6 g/dL (13.5-16.0); Immature Granulocytes Auto 0.04 Thou/mm3 (0.00-0.00); Lymphocytes # (Auto) 1.0 Thou/mm3 (1.0-4.8); Lymphocytes % (Auto) 7 % (10-50); Mean Corpuscular HGB Conc 36.2 g/dl (31.0-37.0); Mean Corpuscular Hemoglobin 30.7 pg (25.0-35.0); Mean Corpuscular Volume 85 fL (80-100); Monocytes # (Auto) 0.8 Thou/mm3 (0.0-0.8); Monocytes % (Auto) 6 % (0-12); Neutrophils # (Auto) 11.7 Thou/mm3 (1.8-7.7); Neutrophils % (Auto) 85 % (37-80); Nucleated Red Blood Cell # 0.00 Thou/mm3 (0.00-0.00); Nucleated Red Blood Cell % 0 /100 WBC (0); Platelet Count 249 Thou/mm3 (140-440); RDW Standard Deviation 37.7 fL (35.1-43.9); Red Blood Count 4.75 Miln/mm3 (4.50-5.90); White Blood Count 13.7 Thou/mm3 (3.8-10.6)
[2025-08-20 06:06] LABS: Alanine Aminotransferase 15 U/L (10-49); Albumin, Serum 4.1 gm/dL (3.4-4.8); Albumin/Globulin Ratio 1.4 (1.2-2.2); Alkaline Phosphatase 113 U/L (46-116); Anion Gap 10 (7-16); Aspartate Amino Transferase 17 U/L (0-34); BUN/Creatinine Ratio 12 Ratio (12-20); Bilirubin,Total 1.4 mg/dL (0.3-1.2); Blood Urea Nitrogen 21 mg/dL (9-23); Calcium 9.2 mg/dL (8.3-10.6); Calcium (Corrected) 9.2 mg/dL (8.5-10.1); Carbon Dioxide 24.1 mMol/L (20.0-31.0); Chloride 103 mMol/L (98-107); Creatinine (Component) 1.7 mg/dL (0.6-1.3); Estimated Creatinine Clearance 40.5 mL/min (>60); Globulin 2.9 gm/dL (2.3-3.5); Glucose 261 mg/dL (74-106); Magnesium 1.9 mg/dL (1.6-2.6); Osmolality,Calculated 285 (275-295); Phosphorous 2.1 mg/dL (2.4-5.1); Potassium 4.9 mMol/L (3.4-5.1); Sodium 137 mMol/L (136-145); Total Protein 7.0 gm/dL (5.7-8.2); eGFR 41 See Note
[2025-08-20 06:07] LABS: Glucose Estimated Average 229 mg/dL (80-131); Hemoglobin A1C 9.6 % Hgb (4.8-6.0)
[2025-08-20 06:52] LABS: INR 1.4 (0.9-1.3); Prothrombin Time 14.2 Seconds (9.0-12.2)
[2025-08-20] MEDS: INSULIN LISPRO (AdmeLOG) 1 UNIT/0.01 ML UNIT SC ×2 (07:25→11:38)
[2025-08-20] MEDS: INSULIN DEGLUDEC 5 UNIT/0.05 ML (PER 5 UNITS) 12 UNIT SC ×2 (08:27→20:36)
[2025-08-20] MEDS: OXYBUTYNIN CHLOR 5 MG TABLET PO (08:28)
[2025-08-20] MEDS: APIXABAN 2.5 MG TABLET 5 MG PO ×2 (08:28→20:36)
--- NOTE | 2025-08-20 08:49 | ESPR_ITS ---
<Statement entered by Kaykay Wing MD - 08/22/25 17:16> The patient personally examined by me evaluated in the telemetry floor continues to feel well no shortness of breath chest pain remains in A-fib rate controlled well because of compliance issue and patient dementia Coumadin is dangerous recommended Eliquis for A-fib agree with treatment plan recommendation as documented by PGY 1 Dr. Yonatan Wong Documentation for date of: 08/20/25 Subjective Subjective Interval history: Patient seen and examined at bedside; no acute events overnight. Per family, patient is confused. Exam Vital Signs Temp Pulse Resp BP Pulse Ox O2 Del Method 97.3 F 74 16 124/87 H 99 Room Air 08/20/25 08:00 08/20/25 08:00 08/20/25 08:00 08/20/25 08:00 08/20/25 08:00 08/20/25 08:00 Narrative Exam General: A&Ox2, appears stated age HEENT: Moist mucous membranes, conjunctiva clear, EOMI, PERRLA, Cardiovascular: S1, S2, radial pulses +2 bilat, irregularly irregular Pulmonary: CTAB bilat no cough, no wheezing GI: No tenderness to light or deep palpitation, no guarding, rigidity, rebound tenderness or distension Extremities: No presence of trace or pitting edema in lower extremities bilaterally, dorsalis pedis pulses +2 bilaterally Neuro: AAOx2, not alert to time, no focal motor or sensory deficits in the UE or LE bilat Objective Labs 08/20/25 04:29 08/20/25 04:29 Labs: Laboratory Results - last 24 hr 08/20/25 08/20/25 04:29 05:40 WBC 13.7 H D RBC 4.75 Hgb 14.6 Hct 40.3 L MCV 85 MCH 30.7 MCHC 36.2 RDW Std Deviation 37.7 Plt Count 249 Neut % (Auto) 85 H Lymph % (Auto) 7 L [place] % (Auto) 6 Eos % (Auto) 2 Baso % (Auto) 1 Neut # (Auto) 11.7 H Lymph # (Auto) 1.0 [place] # (Auto) 0.8 Eos # (Auto) 0.2 Baso # (Auto) 0.1 Immature Gran # (Auto) 0.04 H Absolute Nucleated RBC 0.00 Immature Gran % 0 Nucleated RBC % 0 PT 14.2 H INR 1.4 H Sodium 137 Potassium 4.9 D Chloride 103 Carbon Dioxide 24.1 Anion Gap 10 BUN 21 Creatinine 1.7 H Estim Creat Clear Calc 40.5 L eGFR 41 L BUN/Creatinine Ratio [address] Glu mg/dL 229 H Hemoglobin A1c 9.6 H Calculated Osmolality 285 Calcium 9.2 Corrected Calcium 9.2 Phosphorus 2.1 L Magnesium 1.9 Total Bilirubin 1.4 H AST 17 ALT 15 Alkaline Phosphatase 113 Total Protein 7.0 Albumin 4.1 Globulin 2.9 Albumin/Globulin Ratio 1.4 Quality Measures Quality Measures VTE prophylaxis Advance care planning discussed with:: other Assessment & Plan Assessment Current Active Medications: Generic Name Dose Route Start Last Admin Trade Name Freq PRN Reason Stop Dose Admin Albuterol/Ipratropium 3 ml 08/19/25 00:58 Albuterol/Ipratropium (Duoneb) Rt Essence 3 Ml Nebu INH 09/18/25 00:57 Q6HRRT PRN SHORTNESS OF BREATH OR WHEEZE Apixaban 5 mg 08/19/25 21:00 08/20/25 08:28 Apixaban 2.5 Mg Tablet PO 09/18/25 20:59 5 mg BID JACKIE Administration Atorvastatin Calcium 80 mg 08/19/25 01:05 08/19/25 21:16 Atorvastatin Calcium 10 Mg Tablet PO 09/18/25 01:04 80 mg HS JACKIE Administration Dextrose 25 ml 08/19/25 01:04 Dextrose 50%-Water Inj 50 Ml Syringe IV 09/18/25 01:03 Q15MIN PRN BG 50-70 responsive npo pt Dextrose 50 ml 08/19/25 01:04 Dextrose 50%-Water Inj 50 Ml Syringe IV 09/18/25 01:03 Q15MIN PRN BG <50 OR BG <70 & pt unresponsive Docusate Sodium 100 mg 08/19/25 00:58 Docusate Sod 100 Mg Capsule PO 09/18/25 00:57 QDAY PRN CONSTIPATION Protocol Glucagon 1 mg 08/19/25 01:04 Glucagon Inj 1 Mg Vial IM Q15MIN PRN BG <70, and no IV access Insulin Human Lispro 0 unit 08/19/25 07:30 08/20/25 07:25 Insulin Lispro (Admelog) 1 Unit/0.01 Ml Unit SC 09/18/25 07:29 3 unit AC JACKIE Administration Protocol Ondansetron HCl 4 mg 08/19/25 00:58 Ondansetron Inj 2 Mg/Ml Inj 2 Ml IVP 09/18/25 00:57 Q6H PRN NAUSEA OR VOMITING Protocol Oxybutynin Chloride 5 mg 08/19/25 09:00 08/20/25 08:28 Oxybutynin Chlor 5 Mg Tablet PO 09/18/25 08:59 5 mg QDAY JACKIE Administration Pantoprazole Sodium 40 mg 08/19/25 09:00 08/20/25 08:27 Pantoprazole Inj 40 Mg Vial IVP 09/18/25 08:59 40 mg QDAY JACKIE Administration Plan 79-year-old Fijian-speaking male with past medical history of hypertension, insulin-dependent type 2 diabetes, prostate surgery for prostatomegaly, hyperlipidemia, chronic atrial fibrillation on warfarin, CKD stage II, dementia likely vascular presenting to the hospital for confusion and wandering around per patient's family. Cardiology consulted for recommendations regarding patient's atrial fibrillation with EKG obtained showing A-fib with SVR and left axis deviation. #Chronic A-fib [id number]: 6 HAS-BLED: 3 Patient has chronic atrial fibrillation which was controlled without any rate/rhythm control medications Patient is on warfarin 4 mg twice a week and 2 mg rest of the week; however, there is some concern for medication noncompliance as patient's INR checked frequently at cardiology varied between therapeutic and subtherapeutic Patient's presenting to the hospital with EKG showing A-fib with SVR and left axis deviation but patient denies having any active chest pain, shortness of breath or other concerning cardiac symptoms Patient's INR subtherapeutic currently with INR 1.4 Plan: Continue monitoring on telemetry Keep magnesium greater than 2 and potassium greater than 4 Discontinue warfarin and start Eliquis 5 mg p.o. twice daily Please follow-up with cardiology once stable to be discharged within 1 week #Acute encephalopathy #History of CVA #Hypertension #Hyperlipidemia #CKD, stage IIIa #Non-insulin dependent Type II Diabetes mellitus Rest of medical problems to be managed by the primary hospitalist team Patient seen and assessed with attending Dr. Maciej Wong, PGY1
[2025-08-20] MEDS: SODIUM CHLORIDE 0.9% 1000 ML 1,000 ML 100 ML IV ×2 (11:14→20:36)
--- NOTE | 2025-08-20 12:06 | ESPR_ITS ---
Tele Neuro Progress Note Progress Note Date 08/20/25 [facility] TeleNeurology Consult Services Routine Consult Follow-Up Patient Name:???nathaniel messer Date of :???1945 Identification Number:??? Date of Service:???08/20/2025 11:54:52 Diagnosis?F05.9 - Delirium, unspecified ?G31.84 - Mild cognitive impairment of uncertain or unknown etiology Impression DDX: acute delirium superimposed on baseline neurocognitive disorder versus acute stroke versus acute metabolic encephalopathy 08/20/25: No acute stroke on MRI brain thankfully continues to be pleasantly confused per staff and during our conversation EEG pending at this time as well as lab work he has uncontrolled DM as well with a1c noted to be >9% - EEG pending, will follow up - b12/folate/RPR/vitamin D25OH - PT/OT/B[employer] eval/treat - with his extreme wandering behavior does not seem appropriate to drive and need to review local resources for him and family - neurology to follow Our recommendations are outlined below Nursing Recommendations :Delirium precautions: Blinds open during the day, closed at night, frequent reorientation, minimize nighttime interruptionsWhen possible avoid benzodiazepines, opioid pain medications, and anticholinergic medications Consultations :Toxic metabolic work up per primary team Disposition :Neurology will follow Subjective he is alone in room, calm, pleasant Imaging MRI brain no acute stroke, no masses, no bleed ? Examination 1A: Level of Consciousness - Alert; keenly responsive?+ 0 1B: Ask Month and Age - Could Not Answer Either Question Correctly?+ 2 1C: Blink Eyes & Squeeze Hands - Performs Both Tasks?+ 0 2: Test Horizontal Extraocular Movements - Normal?+ 0 3: Test Visual Elena - No Visual Loss?+ 0 4: Test Facial Palsy (Use Grimace if Obtunded) - Normal symmetry?+ 0 5A: Test Left Arm Motor Drift - No Drift for 10 Seconds?+ 0 5B: Test Right Arm Motor Drift - No Drift for 10 Seconds?+ 0 6A: Test Left Leg Motor Drift - No Drift for 5 Seconds?+ 0 6B: Test Right Leg Motor Drift - No Drift for 5 Seconds?+ 0 7: Test Limb Ataxia (FNF/Heel-Boland) - No Ataxia?+ 0 8: Test Sensation - Normal; No sensory loss?+ 0 9: Test Language/Aphasia - Normal; No aphasia?+ 0 10: Test Dysarthria - Normal?+ 0 11: Test Extinction/Inattention - No abnormality?+ 0 NIHSS Score:?0 NIHSS Free Text :?follows commands, states its May and for the year states its 5 ? This consult was conducted in real time using interactive audio and video technology. Patient was informed of the technology being used for this visit and agreed to proceed. Patient located in hospital and provider located at home/office setting. Telehealth Neurology consultation was provided. I spent 25 minutes providing telehealth care. This includes time spent for face to face visit via telemedic ine, review of medical records, imaging studies and discussion of findings with providers, the patient and/or family. Dr Tamera Conroy [facility] For Inpatient follow-up with [facility] physician please call [facility] at . As we are not an outpatient service for any post hospital discharge needs please contact the hospital for assistance. If you have any questions for the [facility] physicians or need to reconsult for clinical or diagnostic changes please contact us via [facility] at Signature :?Tamera Conroy ? Most Recent Vital Signs Last Vital Signs Temp 97.3 F 08/20/25 08:00 Pulse 74 08/20/25 08:00 Resp 16 08/20/25 08:00 BP 124/87 H 08/20/25 08:00 Pulse Ox 99 08/20/25 08:00 O2 Del Method Room Air 08/20/25 08:00 Laboratory-Coagulation Panel PT 14.2 Seconds (9.0-12.2) H 08/20/25 05:40 INR 1.4 (0.9-1.3) H 08/20/25 05:40 APTT 34.6 Seconds (22.0-36.0) 08/19/25 05:40
--- NOTE | 2025-08-20 14:40 | PC.SS ---
Discharge rounds: Dementia workup, on fluids for CKD.
--- NOTE | 2025-08-20 15:41 | ESPR_ITS ---
<Statement entered by Vish Medeiros MD - 08/31/25 08:05> I reviewed above note and agree with findings and plans. I have also personally examined the patient with medicine team and went over assessment and plan with medical team including art gallery internship and resident physician. Documentation for date of: 08/20/25 Subjective Subjective Interval history: Patient is seen and examined at bedside. No acute overnight events. Patient denies any other complaints. Labs done this morning showed WBC 13.7 but also noted to have elevated counts in the other cell lines. Noted to have increase in the creatinine to 1.7 and morning blood sugars is 261. 12 units of insulin degludec is given. Noted to have A1c of 9.6. Patient is started on fluids in view of suspected ongoing dehydration and will continue to monitor urine output, renal functions. Plan to discharge tomorrow if renal functions improves. Exam Vital Signs Temp Pulse Resp BP Pulse Ox O2 Del Method 97.9 F 72 21 H 148/84 H 97 Room Air 08/20/25 12:00 08/20/25 12:00 08/20/25 12:00 08/20/25 12:00 08/20/25 12:00 08/20/25 12:00 Narrative Exam General: Awake. HEENT: Normocephalic, atraumatic, mucous membranes moist. Heart: Irregular rate and rhythm, no murmurs. Lungs: Clear to auscultation with no wheezing or crackles. Abdomen: Soft, nondistended, nontender, positive bowel sounds. ?No guarding or rebound tenderness. Neurologic: Alert and oriented x3, no gross neurological deficit, and patient able to move all 4 extremities. Extremities: No edema. Skin: No rash or ecchymoses. Objective Labs 08/20/25 04:29 08/20/25 04:29 Labs: Laboratory Results - last 24 hr 08/20/25 08/20/25 04:29 05:40 WBC 13.7 H D RBC 4.75 Hgb 14.6 Hct 40.3 L MCV 85 MCH 30.7 MCHC 36.2 RDW Std Deviation 37.7 Plt Count 249 Neut % (Auto) 85 H Lymph % (Auto) 7 L [place] % (Auto) 6 Eos % (Auto) 2 Baso % (Auto) 1 Neut # (Auto) 11.7 H Lymph # (Auto) 1.0 [place] # (Auto) 0.8 Eos # (Auto) 0.2 Baso # (Auto) 0.1 Immature Gran # (Auto) 0.04 H Absolute Nucleated RBC 0.00 Immature Gran % 0 Nucleated RBC % 0 PT 14.2 H INR 1.4 H Sodium 137 Potassium 4.9 D Chloride 103 Carbon Dioxide 24.1 Anion Gap 10 BUN 21 Creatinine 1.7 H Estim Creat Clear Calc 40.5 L eGFR 41 L BUN/Creatinine Ratio [address]ucose [address] Glu mg/dL 229 H Hemoglobin A1c 9.6 H Calculated Osmolality 285 Calcium 9.2 Corrected Calcium 9.2 Phosphorus 2.1 L Magnesium 1.9 Total Bilirubin 1.4 H AST 17 ALT 15 Alkaline Phosphatase 113 Total Protein 7.0 Albumin 4.1 Globulin 2.9 Albumin/Globulin Ratio 1.4 Quality Measures Quality Measures VTE prophylaxis Advance care planning discussed with:: patient Assessment & Plan Assessment Current Active Medications: Generic Name Dose Route Start Last Admin Trade Name Freq PRN Reason Stop Dose Admin Albuterol/Ipratropium 3 ml 08/19/25 00:58 Albuterol/Ipratropium (Duoneb) Rt Essence 3 Ml Nebu INH 09/18/25 00:57 Q6HRRT PRN SHORTNESS OF BREATH OR WHEEZE Apixaban 5 mg 08/19/25 21:00 08/20/25 08:28 Apixaban 2.5 Mg Tablet PO 09/18/25 20:59 5 mg BID JACKIE Administration Atorvastatin Calcium 80 mg 08/19/25 01:05 08/19/25 21:16 Atorvastatin Calcium 10 Mg Tablet PO 09/18/25 01:04 80 mg HS JACKIE Administration Dextrose 25 ml 08/19/25 01:04 Dextrose 50%-Water Inj 50 Ml Syringe IV 09/18/25 01:03 Q15MIN PRN BG 50-70 responsive npo pt Dextrose 50 ml 08/19/25 01:04 Dextrose 50%-Water Inj 50 Ml Syringe IV 09/18/25 01:03 Q15MIN PRN BG <50 OR BG <70 & pt unresponsive Docusate Sodium 100 mg 08/19/25 00:58 Docusate Sod 100 Mg Capsule PO 09/18/25 00:57 QDAY PRN CONSTIPATION Protocol Glucagon 1 mg 08/19/25 01:04 Glucagon Inj 1 Mg Vial IM Q15MIN PRN BG <70, and no IV access Sodium Chloride 1,000 mls @ 100 mls/hr 08/20/25 10:21 08/20/25 11:14 Ns IV 08/21/25 06:20 100 mls/hr Q10H JACKIE Administration Insulin Human Lispro 0 unit 08/19/25 07:30 08/20/25 11:38 Insulin Lispro (Admelog) 1 Unit/0.01 Ml Unit SC 09/18/25 07:29 3 unit AC JACKIE Administration Protocol Ondansetron HCl 4 mg 08/19/25 00:58 Ondansetron Inj 2 Mg/Ml Inj 2 Ml IVP 09/18/25 00:57 Q6H PRN NAUSEA OR VOMITING Protocol Oxybutynin Chloride 5 mg 08/19/25 09:00 08/20/25 08:28 Oxybutynin Chlor 5 Mg Tablet PO 09/18/25 08:59 5 mg QDAY JACKIE Administration Pantoprazole Sodium 40 mg 08/19/25 09:00 08/20/25 08:27 Pantoprazole Inj 40 Mg Vial IVP 09/18/25 08:59 40 mg QDAY JACKIE Administration Plan 79-year-old male with chronic Afib and erratic INR due to poor compliance, now presenting with acute confusion likely from dementia progression. EKG with Afib and SVR, stable hemodynamics. Recommend transition from warfarin to Eliquis, maintain electrolyte targets, and arrange close outpatient cardiology follow-up. #Acute Encephalopathy, resolved #Progressive Dementia Likely acute on chronic encephalopathy in the setting of evolving neurodegenerative dementia. Infectious, metabolic, and structural causes have been ruled out so far. Differential: -Alzheimer?s disease (most likely) -Vascular dementia (prior basal ganglia stroke, vascular risk factors) -Lewy body dementia (no hallucinations or parkinsonism noted) -Frontotemporal dementia (less likely, no personality changes) Plan: * Follow up B12 * RPR - Negative and CXR - No infiltrates and noted and less suspicion of pneumonia at this point of time. * TSH is within normal limits * Maintain low-stimulation environment and good sleep hygiene. * Reorient patient frequently. * Continue to monitor mentation and safety. * Arrange outpatient neurology follow-up for formal dementia evaluation and management. * Family educated on progression and importance of supervision and driving cessation. #Chronic Atrial Fibrillation (Rate Controlled) CHADSVASc = 6 (age, HTN, DM, prior CVA) HAS-BLED= 3 (HTN, age, labile INR) Subtherapeutic INR 1.5; history of erratic INR due to poor compliance with warfarin regimen. No symptoms of ACS, heart failure, or rate-related instability. Plan: * Continue telemetry monitoring. * Maintain electrolytes (K >4, Mg >2). * Discontinued warfarin and initiate Eliquis 5 mg PO BID for anticoagulation. * Recheck renal function prior to discharge; adjust dose if GFR <30. * Outpatient cardiology follow-up within one week after discharge. * Reinforce medication compliance with patient and family. #Hypertension #Hyperlipidemia BP - noted be mildly elevated Plan: * Continue Lipitor 80 mg nightly. * Resumed amlodipine. #Chronic Kidney Disease (Stage IIIa) Cr improved to 1.5 as of 08/19 and uptrended to 1.7 which is almost his baseline Plan: * Avoid nephrotoxins. * Trend renal function daily. * Continue hydration and renally adjust meds. #Type 2 Diabetes Mellitus Glucose elevated on admission, now improving. Using Lantus 14 Units at home Plan: * Continue sliding scale insulin. * A1c - 9.6 * 12U of Insulin Degludec is given and will adjust the insulin dose based on sugars * Maintain carb-controlled diet. * Hypoglycemia protocol in place. #Health Maintenance Disposition: Med-Tele DVT prophylaxis:Eliquis GI prophylaxis: Protonix Diet: Carb low CODE STATUS: Full Patient plan of care was discussed with the attending physician, Dr. Mala He, PGY2
[2025-08-20 19:11] LABS: Vitamin B12 382 pg/mL (211-911)
[2025-08-20] MEDS: ATORVASTATIN CALCIUM 10 MG TABLET 80 MG PO (20:36)
[2025-08-21] VITALS (8 sets, daily range): BP systolic 138–162; BP diastolic 81–89; PULSE 45–92; RESP 15–95; TEMP 36.2–36.7; O2SAT 95–99; BMI 25.5
--- NOTE | 2025-08-21 00:04 | RESP.EEG ---
EEG has been completed and is ready for MD interpretation
[2025-08-21 05:09] LABS: Basophils # (Auto) 0.1 Thou/mm3 (0.0-0.2); Basophils % (Auto) 1 % (0-2.5); Eosinophils # (Auto) 0.5 Thou/mm3 (0.0-0.5); Eosinophils % (Auto) 6 % (0-10); Hematocrit 41.5 % (41.0-53.0); Hemoglobin 14.7 g/dL (13.5-16.0); Immature Granulocytes Auto 0.02 Thou/mm3 (0.00-0.00); Lymphocytes # (Auto) 1.7 Thou/mm3 (1.0-4.8); Lymphocytes % (Auto) 23 % (10-50); Mean Corpuscular HGB Conc 35.4 g/dl (31.0-37.0); Mean Corpuscular Hemoglobin 30.2 pg (25.0-35.0); Mean Corpuscular Volume 85 fL (80-100); Monocytes # (Auto) 0.6 Thou/mm3 (0.0-0.8); Monocytes % (Auto) 9 % (0-12); Neutrophils # (Auto) 4.5 Thou/mm3 (1.8-7.7); Neutrophils % (Auto) 61 % (37-80); Nucleated Red Blood Cell # 0.00 Thou/mm3 (0.00-0.00); Nucleated Red Blood Cell % 0 /100 WBC (0); Platelet Count 252 Thou/mm3 (140-440); RDW Standard Deviation 39.0 fL (35.1-43.9); Red Blood Count 4.87 Miln/mm3 (4.50-5.90); White Blood Count 7.4 Thou/mm3 (3.8-10.6)
[2025-08-21 05:32] LABS: Alanine Aminotransferase 16 U/L (10-49); Albumin, Serum 3.9 gm/dL (3.4-4.8); Albumin/Globulin Ratio 1.4 (1.2-2.2); Alkaline Phosphatase 108 U/L (46-116); Anion Gap 11 (7-16); Aspartate Amino Transferase 18 U/L (0-34); BUN/Creatinine Ratio 16 Ratio (12-20); Bilirubin,Total 0.7 mg/dL (0.3-1.2); Blood Urea Nitrogen 24 mg/dL (9-23); Calcium 8.7 mg/dL (8.3-10.6); Calcium (Corrected) 8.8 mg/dL (8.5-10.1); Carbon Dioxide 25.0 mMol/L (20.0-31.0); Chloride 107 mMol/L (98-107); Creatinine (Component) 1.5 mg/dL (0.6-1.3); Estimated Creatinine Clearance 45.9 mL/min (>60); Globulin 2.7 gm/dL (2.3-3.5); Glucose 131 mg/dL (74-106); Magnesium 1.9 mg/dL (1.6-2.6); Osmolality,Calculated 290 (275-295); Phosphorous 3.2 mg/dL (2.4-5.1); Potassium 4.1 mMol/L (3.4-5.1); Sodium 143 mMol/L (136-145); Total Protein 6.6 gm/dL (5.7-8.2); eGFR 47 See Note
--- NOTE | 2025-08-21 08:38 | ESPR_ITS ---
<Statement entered by Kaykay Wing MD - 08/22/25 17:31> The patient is examined evaluated by me appears to be clinically stable recommended resident team to discharge the patient home on Eliquis instead of Coumadin A-fib rate controlled well agree with the treatment plan recommendation as documented patient has dementia doubt very much he has any seizures. Agree with treatment and recommendation as documented by PGY 2 DR. GRAY will continue to follow the patient as an outpatient following discharge Documentation for date of: 08/21/25 Subjective Subjective Interval history: Patient seen and examined in hospital bed denies having any concerning cardiac symptoms at this time. Patient cleared to be discharge per cardiology standpoint with close monitoring outpatient with a follow-up within the next 1 to 2 weeks. Exam Vital Signs Temp Pulse Resp BP Pulse Ox O2 Del Method 97.2 F 56 L 16 162/81 H 96 Room Air 08/21/25 07:40 08/21/25 07:40 08/21/25 07:40 08/21/25 07:40 08/21/25 07:40 08/21/25 07:40 Narrative Exam General: A&Ox2, appears stated age HEENT: Moist mucous membranes, conjunctiva clear, EOMI, PERRLA, Cardiovascular: S1, S2, radial pulses +2 bilat, irregularly irregular Pulmonary: CTAB bilat no cough, no wheezing GI: No tenderness to light or deep palpitation, no guarding, rigidity, rebound tenderness or distension Extremities: No presence of trace or pitting edema in lower extremities bilaterally, dorsalis pedis pulses +2 bilaterally Neuro: AAOx2, not alert to time, no focal motor or sensory deficits in the UE or LE bilat Objective Labs 08/21/25 04:36 08/21/25 04:36 Labs: Laboratory Results - last 24 hr 08/19/25 08/21/25 05:40 04:36 WBC 7.4 D RBC 4.87 Hgb 14.7 Hct 41.5 MCV 85 MCH 30.2 MCHC 35.4 RDW Std Deviation 39.0 Plt Count 252 Neut % (Auto) 61 Lymph % (Auto) 23 [place] % (Auto) 9 Eos % (Auto) 6 Baso % (Auto) 1 Neut # (Auto) 4.5 Lymph # (Auto) 1.7 [place] # (Auto) 0.6 Eos # (Auto) 0.5 Baso # (Auto) 0.1 Immature Gran # (Auto) 0.02 H Absolute Nucleated RBC 0.00 Immature Gran % 0 Nucleated RBC % 0 Sodium 143 Potassium 4.1 D Chloride 107 Carbon Dioxide 25.0 Anion Gap 11 BUN 24 H Creatinine 1.5 H Estim Creat Clear Calc 45.9 L eGFR 47 L BUN/Creatinine Ratio 16 Glucose 131 H D Calculated Osmolality 290 Calcium 8.7 Corrected Calcium 8.8 Phosphorus 3.2 Magnesium 1.9 Total Bilirubin 0.7 D AST 18 ALT 16 Alkaline Phosphatase 108 Total Protein 6.6 Albumin 3.9 Globulin 2.7 Albumin/Globulin Ratio 1.4 Vitamin B12 382 Quality Measures Quality Measures VTE prophylaxis Advance care planning discussed with:: patient Assessment & Plan Assessment Current Active Medications: Generic Name Dose Route Start Last Admin Trade Name Freq PRN Reason Stop Dose Admin Albuterol/Ipratropium 3 ml 08/19/25 00:58 Albuterol/Ipratropium (Duoneb) Rt Essence 3 Ml Nebu INH 09/18/25 00:57 Q6HRRT PRN SHORTNESS OF BREATH OR WHEEZE Amlodipine Besylate 10 mg 08/21/25 09:00 Amlodipine Besylate 5 Mg Tablet PO 09/20/25 08:59 QDAY JACKIE Apixaban 5 mg 08/19/25 21:00 08/20/25 20:36 Apixaban 2.5 Mg Tablet PO 09/18/25 20:59 5 mg BID JACKIE Administration Atorvastatin Calcium 80 mg 08/19/25 01:05 08/20/25 20:36 Atorvastatin Calcium 10 Mg Tablet PO 09/18/25 01:04 80 mg HS JACKIE Administration Dextrose 25 ml 08/19/25 01:04 Dextrose 50%-Water Inj 50 Ml Syringe IV 09/18/25 01:03 Q15MIN PRN BG 50-70 responsive npo pt Dextrose 50 ml 08/19/25 01:04 Dextrose 50%-Water Inj 50 Ml Syringe IV 09/18/25 01:03 Q15MIN PRN BG <50 OR BG <70 & pt unresponsive Docusate Sodium 100 mg 08/19/25 00:58 Docusate Sod 100 Mg Capsule PO 09/18/25 00:57 QDAY PRN CONSTIPATION Protocol Glucagon 1 mg 08/19/25 01:04 Glucagon Inj 1 Mg Vial IM Q15MIN PRN BG <70, and no IV access Insulin Degludec 12 unit 08/20/25 21:00 08/20/25 20:36 Insulin Degludec 5 Unit/0.05 Ml (Per 5 Units) SC 09/19/25 20:59 12 unit HS JACKIE Administration Insulin Human Lispro 0 unit 08/19/25 07:30 08/21/25 07:23 Insulin Lispro (Admelog) 1 Unit/0.01 Ml Unit SC 09/18/25 07:29 Not Given AC JACKIE Protocol Ondansetron HCl 4 mg 08/19/25 00:58 Ondansetron Inj 2 Mg/Ml Inj 2 Ml IVP 09/18/25 00:57 Q6H PRN NAUSEA OR VOMITING Protocol Oxybutynin Chloride 5 mg 08/19/25 09:00 08/20/25 08:28 Oxybutynin Chlor 5 Mg Tablet PO 09/18/25 08:59 5 mg QDAY JACKIE Administration Pantoprazole Sodium 40 mg 08/19/25 09:00 08/20/25 08:27 Pantoprazole Inj 40 Mg Vial IVP 09/18/25 08:59 40 mg QDAY JACKIE Administration Plan 79-year-old Malaysian-speaking male with past medical history of hypertension, insulin-dependent type 2 diabetes, prostate surgery for prostatomegaly, hyperlipidemia, chronic atrial fibrillation on warfarin, CKD stage II, dementia likely vascular presenting to the hospital for confusion and wandering around per patient's family. Cardiology consulted for recommendations regarding patient's atrial fibrillation with EKG obtained showing A-fib with SVR and left axis deviation. #Chronic A-fib [id number]: 6 HAS-BLED: 3 Patient has chronic atrial fibrillation which was controlled without any rate/rhythm control medications Patient is on warfarin 4 mg twice a week and 2 mg rest of the week; however, there is some concern for medication noncompliance as patient's INR checked frequently at cardiology varied between therapeutic and subtherapeutic Patient's presenting to the hospital with EKG showing A-fib with SVR and left axis deviation but patient denies having any active chest pain, shortness of breath or other concerning cardiac symptoms Patient's INR subtherapeutic currently with INR 1.4 Plan: Keep magnesium greater than 2 and potassium greater than 4 Continue Eliquis 2.5 mg p.o. twice daily Please follow-up with cardiology once stable to be discharged within 1 week #Acute encephalopathy #History of CVA #Hypertension #Hyperlipidemia #CKD, stage IIIa #Non-insulin dependent Type II Diabetes mellitus Rest of medical problems to be managed by the primary hospitalist team Patient seen and assessed with attending Dr. Maciej Gray, DO PGY-2 Internal Medicine - GME
[2025-08-21] MEDS: OXYBUTYNIN CHLOR 5 MG TABLET PO (09:06)
[2025-08-21] MEDS: APIXABAN 2.5 MG TABLET 5 MG PO (09:07)
--- NOTE | 2025-08-21 09:09 | PD.TNEUROPRO ---
Tele Neuro Progress Note Progress Note Date 08/21/25 Most Recent Vital Signs Last Vital Signs Temp 97.2 F 08/21/25 07:40 Pulse 56 L 08/21/25 09:06 Resp 16 08/21/25 07:40 BP 162/81 H 08/21/25 09:06 Pulse Ox 96 08/21/25 07:40 O2 Del Method Room Air 08/21/25 07:40 Laboratory-Coagulation Panel PT 14.2 Seconds (9.0-12.2) H 08/20/25 05:40 INR 1.4 (0.9-1.3) H 08/20/25 05:40 APTT 34.6 Seconds (22.0-36.0) 08/19/25 05:40 Progress Note Narrative [facility] Tele[facility]urology Consult Services Routine Consult Follow-Up Patient Name: nathaniel messer Date of : 1945 Identification Number: Date of Service: 08/21/2025 08:55:33 Diagnosis ? F05.9 - Delirium, unspecified ? G31.84 - Mild cognitive impairment of uncertain or unknown etiology Impression 79 yo M w h/o HTN, HLD, DM, a fib on warfarin, previous CVA (R BG on MRI 10/2020) w residual difficulty identifying people at times, BPH s/p TURP, who presented to ED on 08/19 for evaluation of confusion after wandering and driving for 2 days. Family reported pt driving to [place] for no reason and had to utilize law enforcement to track pt to get him home. No prior similar events. CTH neg. INR on admission subtherapeutic 1.5. Will need to cont eval for etiology of confusion. MRI brain 08/19 neg acute findings. Pt w evidence of cognitive impairment on exam. Recommendations: -- EEG -- Labs: folate, RPR, Vit D25OH -- B12 <400, supplement -- Eliquis was started -- Statin for goal LDL<70 -- Glycemic control, goal A1c<7 -- Delirium precautions -- No driving at this time -- Outpatient neurology follow up in 3-6 weeks -- Tele -- Neuro checks -- DVT/GI ppx per primary team -- PT/OT/ST as appropriate -- Cont to address other medical issues If EEG is neg then pt can be d/c?ed from neuro perspective Our recommendations are outlined below Nursing Recommendations : Delirium precautions: Blinds open during the day, closed at night, frequent reorientation, minimize nighttime interruptionsWhen possible avoid benzodiazepines, opioid pain medications, and anticholinergic medications Consultations : Toxic metabolic work up per primary team DVT Prophylaxis : Choice of Primary Team Disposition : Neurology will follow Subjective Pt reports doing well and no complaints. Denied confusion. Labs UA: 1+ protein, 4+ glucose, 1+blood UDS neg Cr=1.7->1.5 ZB=522 B12 =382 TSH=2.52 A1c=9.6 LDL=67 INR=1.5->1.4 RPR neg Examination Neuro Exam: General: Alert,Awake, Oriented, Place, Person current month June , year 2023 , age 75 , know , not able to recall any objects after 5 minutes Speech: Fluent: Language: Intact: Face: Symmetric: Extraocular Movements: Intact: Motor Exam: No Drift: Coordination: Intact: This consult was conducted in real time using interactive audio and video technology. Patient was informed of the technology being used for this visit and agreed to proceed. Patient located in hospital and provider located at home/office setting. Telehealth Neurology consultation was provided. I spent 25 minutes providing telehealth care. This includes time spent for face to face visit via telemedicine, review of medical records, imaging studies and discussion of findings with providers, the patient and/or family. Dr Fuad Velázquez [facility] For Inpatient follow-up with [facility] physician please call [facility] at . As we are not an outpatient service for any post hospital discharge needs please contact the hospital for assistance. If you have any questions for the [facility] physicians or need to reconsult for clinical or diagnostic changes please contact us via [facility] at Signature : Fuad Velázquez
[2025-08-21 09:11] LABS: Folate > 24.00 ng/mL (>5.38); Vitamin D 25 Hydroxy Total 41.8 ng/mL (7.3-40.2)
--- NOTE | 2025-08-21 10:00 | ESDS_ITS ---
<Statement entered by Vish Medeiros MD - 09/04/25 15:17> I reviewed above note and agree with findings and plans. I have also personally examined the patient with medicine team and went over assessment and plan with medical team including internet sales director and resident physician. <Statement entered by Isabella Barbosa MD - 08/22/25 07:05> Patient was seen and examined by me personally. I have reviewed the below documentation by the team resident and agree with its findings with any exceptions as below. Discharge plan was discussed with the attending, Dr. Medeiros. Isabella Barbosa, PGY-3 Planned Discharge Date 08/21/25 DS: Providers Provider Date of admission: 08/19/25 01:06 Primary care physician: Tay Hassan MD Admitting Provider: Susi Kevin MD Attending Provider on Admission: Vish Medeiros MD Consults: 08/19/25 01:03 Consult to Neurology / Tele-Neurology Stat Comment: Consulting Provider: Mayito Cardenas 08/19/25 02:25 Referral Pharmacy Routine Comment: warfarin dosing Reason for Consult: warfarin 08/19/25 10:10 Consult to Cardiology Routine Comment: Consulting Provider: Kaykay Wing Attending Provider on DC: Vish Medeiros MD Discharging Provider: Leonel Schmitz MD DS: Diagnosis Problem List Completed Was Problem List Reviewed/Reconciled?: Yes Hospital Course Hospital Course Hospital course: Summary: 79 y/o male with PMHx of HTN, Afib (On Warfarin), BPH s/p TURP, overactive bladder, HLD, T2DM, and previous CVA (Basal ganglia) who comes in for evaluation of confusion after wandering and driving for the past 2 days. Hospital: During patient's hospital course, he underwent 08/[address] and 08/19 brain MRI which were both negative for his acute encephalopathy. After a battery of tests were negative, including B12, RPR, TSH, and other labs, it was suspected that patient's presentation was primarily 2/2 progression of dementia and possible Alzheimer's disease. Patient was also started on Eliquis for his rate-controlled atrial fibrillation. By 08/21, patient was deemed clinically stabilized and discharged. Patient is safe to discharge. Further discharge instructions below. -Follow-up with PCP within 1 week of discharge. If you do not have appointment, please follow-up with the [facility] with Dr. He. Call [phone] to make an appointment. -Recommended to follow up with Neurologist as soon as possible within 1week of discharge for dementia -Recommended to follow up with [facility] Dr. Wing within 1 week of discharge -Recommended to stop warfarin and start taking Eliquis 5mg twice daily -Recommended to stop warfarin and take Insulin degludec 20units during night -Take sitagliptin 50mg once daily -Monitor Blood sugars with Free style Jackie and recommended to adjust the dose of medications and Insulin accordingly -Continue rest of the home medications -Return to ED if symptoms persist or return #Acute encephalopathy, resolved #Progressive dementia #History of CVA #Chronic atrial fibrillation (rate-controlled) #Hypertension #Hyperlipidemia #CKD, stage IIIa #Non-insulin dependent Type II Diabetes mellitus Status at Discharge Cognitive/Behavioral Status at Discharge: stable Functional Status at Discharge: independent ambulation Overall Status at Discharge: patient is back to baseline Patient's care plan was discussed with my attending, Dr. Medeiros, and senior resident, Dr. Barbosa. Leonel Schmitz, DO Internal Medicine, PGY-1 Time Spent with Patient Time attestation: Total time spent providing and/or coordinating discharge services: Time spent: Greater than 30 minutes Exam Vital Signs Temp Pulse Resp BP Pulse Ox O2 Del Method 97.2 F 56 L 16 162/81 H 96 Room Air 08/21/25 07:40 08/21/25 09:06 08/21/25 07:40 08/21/25 09:06 08/21/25 07:40 08/21/25 07:40 Narrative Exam General: Awake. HEENT: Normocephalic, atraumatic, mucous membranes moist. Heart: Irregular rate and rhythm, no murmurs. Lungs: Clear to auscultation with no wheezing or crackles. Abdomen: Soft, nondistended, nontender, positive bowel sounds. ?No guarding or r ebound tenderness. Neurologic: Alert and oriented x3, no gross neurological deficit, and patient able to move all 4 extremities. Extremities: No edema. Skin: No rash or ecchymoses. Discharge Plan Plan Patient Disposition: HOME (Self Care) Patient condition on transfer: Stable Care Plan Goals: -Follow-up with PCP within 1 week of discharge. If you do not have appointment, please follow-up with the [facility] with Dr. He. Call [phone] to make an appointment. -Recommended to follow up with Neurologist as soon as possible within 1week of discharge for dementia -Recommended to follow up with [facility] Dr. Wing within 1 week of discharge -Recommended to Stop warfarin and start taking Eliquis 5mg twice daily -Recommended to stop Warfarin and take Insulin degludec 20units during night -Take Sitagliptin 50mg once daily -Monitor Blood sugars with Free style jackie and recommended to adjust the dose of medications and Insulin accordingly -Continue rest of the home medications -Return to ED if symptoms persist or return Prescriptions/Referrals Prescriptions/Med Rec: New Eliquis 5 mg tablet 5 mg PO BID Qty: 30 2RF insulin degludec 100 unit/mL (3 mL) insulin pen 20 unit subcut HS Qty: 15 2RF (DME) FreeStyle Jackie 3 Plus Sensor Device See Rx Instructions .Route Qty: 1 2RF Rx Instructions: As directed sitagliptin 50 mg tablet 50 mg PO QDAY Qty: 30 0RF (DME) FreeStyle Jackie 3 [place] Misc See Rx Instructions .Route Qty: 1 0RF Rx Instructions: As directed (DME) pen needle, diabetic 29 gauge needle See Rx Instructions .Route Qty: 100 2RF Rx Instructions: As directed Continued amlodipine [Norvasc] 10 mg tablet 10 mg PO QDAY Patient Comments: TAKE 1 TABLET BY MOUTH ONCE DAILY olmesartan 40 mg tablet 40 mg PO .once Patient Comments: TAKE 1 TABLET BY MOUTH ONCE DAILY Changed atorvastatin [Lipitor] 80 mg Tablet 40 mg PO QPM Qty: 60 0RF Discontinued warfarin 1 mg tablet 1 mg PO .once daily Patient Comments: TAKE 2 TABLETS BY MOUTH ONCE DAILY THURSDAY THROUGH THURSDAY AND 1 TABLET THURSDAY AND THURSDAY vit D3-folic fpii-[id number]-B12 2,000-800-0.32 unit-mcg-mg tablet 1 tab PO .once insulin glargine [Lantus Solostar U-100 Insulin] 100 unit/mL (3 mL) insulin pen 14 unit subcut QDAY Referrals: Tay Hassan MD [Primary Care Provider, Family Practice] Patient/Caregiver Discharge Instructions Education Materials: CGM, Controlling High Blood Pressure, AFL/Afib, Dementia Caregiver Tips, Delirium & Dementia Difference Print Language: Senegalese Stand Alone Forms: Eileen Award Info., Patient Portal Info Letter Discharge Order Discharge Orders: Discharge (Routine); Ordered 08/21/25 Ordered By: Dmitriy He Quality Discharge Quality Measures VTE prophylaxis
[2025-08-21] MEDS: INSULIN LISPRO (AdmeLOG) 1 UNIT/0.01 ML UNIT SC (12:01)
--- NOTE | 2025-08-21 15:35 | PC.CC ---
Noted patient discharged with several prescriptions including Eliquis, insulin glargine with no Rx coverage on file. Called and s/w [facility] who advised they have no Rx insurance on file and were not able to locate a Medicare prescription plan using an electronic search. S/W son, Eugene, who stated he has insurance cards and will present them to the pharmacy. He suggested patient had possibly Medicaid and a private insurance. No Medicaid plan was found for patient. Medicare supplement plan is on file and Eugene was advised that it does not cover prescriptions. Advised Eugene that he may call back if medication costs are a barrier. If so, consider resuming warfarin vs Eliquis free trial card and [employer] savings program.
--- NOTE | 2025-08-21 15:46 | PD.RESDS ---
Planned Discharge Date 08/21/25 DS: Providers Provider Date of admission: 08/19/25 01:06 Primary care physician: Tay Hassan MD Admitting Provider: Susi Kevin MD Attending Provider on Admission: Vish Medeiros MD Consults: 08/19/25 01:03 Consult to Neurology / Tele-Neurology Stat Comment: Consulting Provider: Mayito Cardenas 08/19/25 02:25 Referral Pharmacy Routine Comment: warfarin dosing Reason for Consult: warfarin 08/19/25 10:10 Consult to Cardiology Routine Comment: Consulting Provider: Kaykay Wing Attending Provider on DC: Dmitriy He MD Discharging Provider: Dmitriy He MD Hospital Course Hospital Course Hospital course: Summary: Patient is a -year-old with a past medical history of who was admitted on with a chief complaint of . Hospital: During patient's hospital course, the main medical diagnoses addressed were . In terms of (medical diagnosis #1), patient had ___ performed. In terms of (medical diagnosis #2), patient had ___ performed. Patient is safe to discharge. Further discharge instructions below. # # # Status at Discharge Cognitive/Behavioral Status at Discharge: stable Functional Status at Discharge: independent ambulation Overall Status at Discharge: patient is back to baseline Patient's care plan was discussed with my attending, Dr. Medeiros, and senior resident, Dr. Barbosa. Leonel Schmitz, DO Internal Medicine, PGY-1 Time Spent with Patient Time attestation: Total time spent providing and/or coordinating discharge services: Exam Vital Signs Temp Pulse Resp BP Pulse Ox O2 Del Method 97.4 F 92 16 144/81 H 96 Room Air 08/21/25 12:00 08/21/25 12:00 08/21/25 12:00 08/21/25 12:00 08/21/25 07:40 08/21/25 07:40 Discharge Plan Plan Patient Disposition: HOME (Self Care) Patient condition on transfer: Stable Care Plan Goals: -Follow-up with PCP within 1 week of discharge. If you do not have appointment, please follow-up with the [facility] with Dr. He. Call [phone] to make an appointment. -Recommended to follow up with Neurologist as soon as possible within 1week of discharge for dementia -Recommended to follow up with [facility] Dr. Ruiz within 1 week of discharge -Recommended to Stop warfarin and start taking Eliquis 5mg twice daily -Recommended to stop Warfarin and take Insulin degludec 20units during night -Take Sitagliptin 50mg once daily -Monitor Blood sugars with Free style srinivasan and recommended to adjust the dose of medications and Insulin accordingly -Continue rest of the home medications -Return to ED if symptoms persist or return Prescriptions/Referrals Prescriptions/Med Rec: New Eliquis 5 mg tablet 5 mg PO BID Qty: 30 2RF insulin degludec 100 unit/mL (3 mL) insulin pen 20 unit subcut HS Qty: 15 2RF (DME) FreeStyle Srinivasan 3 Plus Sensor Device See Rx Instructions .Route Qty: 1 2RF Rx Instructions: As directed sitagliptin 50 mg tablet 50 mg PO QDAY Qty: 30 0RF (DME) FreeStyle Srinivasan 3 [place] Misc See Rx Instructions .Route Qty: 1 0RF Rx Instructions: As directed (DME) pen needle, diabetic 29 gauge needle See Rx Instructions .Route Qty: 100 2RF Rx Instructions: As directed Continued amlodipine [Norvasc] 10 mg tablet 10 mg PO QDAY Patient Comments: TAKE 1 TABLET BY MOUTH ONCE DAILY olmesartan 40 mg tablet 40 mg PO .once Patient Comments: TAKE 1 TABLET BY MOUTH ONCE DAILY Changed atorvastatin [Lipitor] 80 mg Tablet 40 mg PO QPM Qty: 60 0RF Discontinued warfarin 1 mg tablet 1 mg PO .once daily Patient Comments: TAKE 2 TABLETS BY MOUTH ONCE DAILY THURSDAY THROUGH THURSDAY AND 1 TABLET THURSDAY AND THURSDAY vit D3-folic [id number] 2,000-800-0.32 unit-mcg-mg tablet 1 tab PO .once insulin glargine [Lantus Solostar U-100 Insulin] 100 unit/mL (3 mL) insulin pen 14 unit subcut QDAY Referrals: Tay Hassan MD [Primary Care Provider, Family Practice] Patient/Caregiver Discharge Instructions Education Materials: CGM, Controlling High Blood Pressure, AFL/Afib, Dementia Caregiver Tips, Delirium & Dementia Difference Print Language: Kenyan Stand Alone Forms: Eileen Award Info., Patient Portal Info Letter Discharge Order Discharge Orders: Discharge (Routine); Ordered 08/21/25 Ordered By: Dmitriy He
== END 2025-08-21 15:00 | disposition home or self-care (01) | DRG 57 ==
LOC: SERX 08-19 01:22 → SERHOLD 08-19 01:33 → S3NX 08-19 02:23
PROVIDERS: Psychiatry & Neurology Neurology; Admitting Provider Student in an Organized Health Care Education/Training Program; Emergency Provider Emergency Medicine; PCP Family Medicine; Visit Provider Internal Medicine
DX: G30.9 Alzheimer's disease, unspecified (principal); G93.49 Other encephalopathy; I48.20 Chronic atrial fibrillation, unspecified; F01.50 Vascular dementia, unspecified severity, without behavioral disturbance, psychotic disturbance, mood disturbance, and anxiety; F02.80 Dementia in other diseases classified elsewhere, unspecified severity, without behavioral disturbance, psychotic disturbance, mood disturbance, and anxiety; E11.65 Type 2 diabetes mellitus with hyperglycemia; Z79.01 Long term (current) use of anticoagulants; E78.00 Pure hypercholesterolemia, unspecified; N32.81 Overactive bladder; N40.1 Benign prostatic hyperplasia with lower urinary tract symptoms; A53.9 Syphilis, unspecified; I12.9 Hypertensive chronic kidney disease with stage 1 through stage 4 chronic kidney disease, or unspecified chronic kidney disease; N18.31 Chronic kidney disease, stage 3a; E11.22 Type 2 diabetes mellitus with diabetic chronic kidney disease; Z79.84 Long term (current) use of oral hypoglycemic drugs; Z79.4 Long term (current) use of insulin; Z79.899 Other long term (current) drug therapy; Z90.79 Acquired absence of other genital organ(s); Z91.148 Patient's other noncompliance with medication regimen for other reason; G31.83 Neurocognitive disorder with Lewy bodies
CPT/HCPCS: 36415; 70450; 70551; 71045; 80053; 80061; 80307; 80320; 80329; 81001; 82140; 82306; 82607; 82746; 83036; 83735; 84100; 84443; 84484; 85025; 85610; 85730; 86780; 93005; 93225; 95816; 96361; 96374; 99284; J0360; J1815; J2470; J3475; J7030; J7999; A9270; G0480